=== PATIENT | male | born 1930 | race Caucasian/White ===

== ENCOUNTER 2016-08-12 03:20 | Inpatient (IN) | payer MEDICARE ==
[2016-08-12] MEDS ORDERED: SODIUM CHLORIDE 0.9% 1,000 ML IV STA (03:26)
[2016-08-12] MEDS ORDERED: IPRATROPIUM-ALBUTEROL 3 ML NEB INHALATION STA (03:26)
[2016-08-12] MEDS ORDERED: methylPREDNISolone SOD SUCCI 125 MG/2 ML VIAL IV STA (03:26)
--- NOTE | 2016-08-12 03:30 | ED ---
SOB HPI - General Stated Complaint: SOB Time Seen by Provider: 08/12/16 03:20 Source: patient, EMS, RN notes reviewed Mode of arrival: EMS - History of Present Illness Initial Comments: This is a 86-year-old male history of reflux and hypertension who was diagnosed with bronchitis about 2 weeks ago who persists in having a cough and wheezing. EMS was called today because he was more short of breath apparently. Upon initial presentation the patient was doing her breath with congestive lung sounds. He was given a unit dose DuoNeb and route to. He did seem to have some improvement his pulse ox remained at 94 were started. He denies any fevers chills chest pain no sweats. He is a former smoker. No known history of COPD or emphysema however. MD Complaint: shortness of breath, cough - Related Data Home Medications Medication Instructions Recorded Confirmed Citalopram Hydrobromide [CeleXA] 40 mg PO DAILY 05/01/14 08/12/16 HYDROcodone/APAP 10-325MG [[place] 1 each PO Q4HR PRN 05/01/14 08/12/16 10] Metoprolol Tartrate [Lopressor] 12.5 mg PO BID 05/01/14 08/12/16 Omeprazole [PriLOSEC] 20 mg PO DAILY 05/01/14 08/12/16 Tamsulosin HCl [Flomax] 0.4 mg PO DAILY 05/01/14 08/12/16 Aspirin 81 mg PO DAILY 08/12/16 08/12/16 rOPINIRole HCL 0.5 mg PO DAILY 08/12/16 08/12/16 Allergies Allergy/AdvReac Type Severity Reaction Status Date / Time No Known Allergies Allergy Verified 08/12/16 03:38 Review of Systems ROS Statement: Those systems with pertinent positive or pertinent negative responses have been documented in the HPI. ROS Other: All systems not noted in ROS Statement are negative. Past Medical History Past Medical History: GERD/Reflux, Hypertension, Prostate Disorder Additional Past Medical History / Comment(s): pancreatitis History of Any Multi-Drug Resistant Organisms: None Reported Past Surgical History: Cholecystectomy, Joint Replacement Past Psychological History: Anxiety Smoking Status: Former smoker Past Alcohol Use History: None Reported Past Drug Use History: None Reported General Exam - General Exam Comments Initial Comments: This is a well-developed well-nourished awake alert oriented times female he is hard of hearing. General appearance: alert, in no apparent distress Head exam: Present: atraumatic, normocephalic, normal inspection Eye exam: Present: normal appearance, PERRL, EOMI. Absent: scleral icterus, conjunctival injection, periorbital swelling ENT exam: Present: normal exam, mucous membranes moist Neck exam: Present: normal inspection. Absent: tenderness, meningismus, lymphadenopathy Respiratory exam: Present: wheezes, decreased breath sounds (Right lower lobe crepitus.). Absent: respiratory distress, rales, rhonchi, stridor Cardiovascular Exam: Present: regular rate, normal rhythm, normal heart sounds. Absent: systolic murmur, diastolic murmur, rubs, gallop, clicks GI/Abdominal exam: Present: soft, normal bowel sounds. Absent: distended, tenderness, guarding, rebound, rigid Extremities exam: Present: normal inspection, full ROM, normal capillary refill. Absent: tenderness, pedal edema, joint swelling, calf tenderness Back exam: Present: normal inspection Neurological exam: Present: alert, oriented X3, CN II-XII intact Psychiatric exam: Present: normal affect, normal mood Skin exam: Present: warm, dry, intact, normal color. Absent: rash Course Vital Signs 08/12/16 08/12/16 08/12/16 03:20 04:10 04:17 Temperature 99.3 F Pulse Rate 62 56 L 62 Respiratory 20 Rate Blood Pressure 100/55 O2 Sat by Pulse 96 Oximetry - Reevaluation(s) Reevaluation #1: 08/12/16 05:27 Evaluation after initial treatment revealed diminished breath sounds with crepitus and crackles in the right base. He does feel somewhat better. Medical Decision Making - Medical Decision Making I did discuss findings with the patient and family patient will be admitted. - Lab Data Result diagrams: 08/12/16 04:00 08/12/16 04:00 Lab Results 08/12/16 08/12/16 08/12/16 Range/Units 04:00 04:00 04:00 WBC 12.2 H (3.8-10.6) k/uL RBC 3.74 L (4.30-5.90) m/uL Hgb 10.8 L (13.0-17.5) gm/dL Hct 32.9 L (39.0-53.0) % MCV 88.0 (80.0-100.0) fL MCH 28.8 (25.0-35.0) pg MCHC 32.8 (31.0-37.0) g/dL RDW 13.8 (11.5-15.5) % Plt Count 168 (150-450) k/uL Neutrophils % 80 % Lymphocytes % 14 % Monocytes % 5 % Eosinophils % 0 % Basophils % 0 % Neutrophils # 9.7 H (1.3-7.7) k/uL Lymphocytes # 1.7 (1.0-4.8) k/uL Monocytes # 0.6 (0-1.0) k/uL Eosinophils # 0.0 (0-0.7) k/uL Basophils # 0.0 (0-0.2) k/uL PT (9.0-12.0) sec INR (<1.1) APTT (22.0-30.0) sec Sodium 137 (137-145) mmol/L Potassium 4.2 (3.5-5.1) mmol/L Chloride 105 (98-107) mmol/L Carbon Dioxide 21 L (22-30) mmol/L Anion Gap 11 mmol/L BUN 25 H (9-20) mg/dL Creatinine 1.70 H (0.66-1.25) mg/dL Est GFR (MDRD) Af Amer 47 (>60 ml/min/1.73 sqM) Est GFR (MDRD) Non-Af 38 (>60 ml/min/1.73 sqM) Glucose 105 H (74-99) mg/dL Calcium 8.4 (8.4-10.2) mg/dL Magnesium 1.7 (1.6-2.3) mg/dL Total Bilirubin 1.3 (0.2-1.3) mg/dL AST 27 (17-59) U/L ALT 29 (21-72) U/L Alkaline Phosphatase 85 (38-126) U/L Total Creatine Kinase 84 (55-170) U/L CK-MB (CK-2) 0.9 (0.0-2.4) ng/mL CK-MB (CK-2) Rel Index 1.1 Troponin I 0.021 (0.000-0.034) ng/mL NT-Pro-B Natriuret Pep pg/mL Total Protein 6.1 L (6.3-8.2) g/dL Albumin 3.3 L (3.5-5.0) g/dL 08/12/16 08/12/16 Range/Units 04:00 04:00 WBC (3.8-10.6) k/uL RBC (4.30-5.90) m/uL Hgb (13.0-17.5) gm/dL Hct (39.0-53.0) % MCV (80.0-100.0) fL MCH (25.0-35.0) pg MCHC (31.0-37.0) g/dL RDW (11.5-15.5) % Plt Count (150-450) k/uL Neutrophils % % Lymphocytes % % Monocytes % % Eosinophils % % Basophils % % Neutrophils # (1.3-7.7) k/uL Lymphocytes # (1.0-4.8) k/uL Monocytes # (0-1.0) k/uL Eosinophils # (0-0.7) k/uL Basophils # (0-0.2) k/uL PT 11.4 (9.0-12.0) sec INR 1.1 (<1.1) APTT 25.4 (22.0-30.0) sec Sodium (137-145) mmol/L Potassium (3.5-5.1) mmol/L Chloride (98-107) mmol/L Carbon Dioxide (22-30) mmol/L Anion Gap mmol/L BUN (9-20) mg/dL Creatinine (0.66-1.25) mg/dL Est GFR (MDRD) Af Amer (>60 ml/min/1.73 sqM) Est GFR (MDRD) Non-Af (>60 ml/min/1.73 sqM) Glucose (74-99) mg/dL Calcium (8.4-10.2) mg/dL Magnesium (1.6-2.3) mg/dL Total Bilirubin (0.2-1.3) mg/dL AST (17-59) U/L ALT (21-72) U/L Alkaline Phosphatase (38-126) U/L Total Creatine Kinase (55-170) U/L CK-MB (CK-2) (0.0-2.4) ng/mL CK-MB (CK-2) Rel Index Troponin I (0.000-0.034) ng/mL NT-Pro-B Natriuret Pep 4180 pg/mL Total Protein (6.3-8.2) g/dL Albumin (3.5-5.0) g/dL - Radiology Data Radiology results: report reviewed (Review the x-ray reveals chronic lung changes mild atelectasis and scarring in both lung bases no definite focal pneumonia), image reviewed Disposition Clinical Impression: Pneumonitis, Acute bronchospasm, Febrile illness, acute, CHF (congestive heart failure) Disposition: ADMITTED IP TO THIS [facility] Condition: Stable Referrals: Alex Beck MD [Primary Care Provider] - 1-2 days Decision Time: 05:20
[2016-08-12 04:17] LABS: Basophils % (A) 0 %; CH 30.2; CHCM 34.5; Eosinophils % (A) 0 %; HCT 32.9 % (39.0-53.0); HDW 2.88; HGB 10.8 gm/dL (13.0-17.5); Luc # (Auto) 0.21; Luc % (Auto) 2; Lymphocytes # (A) 1.7 k/uL (1.0-4.8); Lymphocytes % (A) 14 %; MCH 28.8 pg (25.0-35.0); MCHC 32.8 g/dL (31.0-37.0); Mean Platelet Volume 7.9; Monocytes # (A) 0.6 k/uL (0-1.0); Monocytes % (A) 5 %; Neutrophils # (A) 9.7 k/uL (1.3-7.7); Neutrophils % (A) 80 %; RBC 3.74 m/uL (4.30-5.90); RDW 13.8 % (11.5-15.5); WBC 12.2 k/uL (3.8-10.6)
[2016-08-12 04:25] LABS: Calcium 8.4 mg/dL (8.4-10.2); Magnesium 1.7 mg/dL (1.6-2.3); Potassium 4.2 mmol/L (3.5-5.1); Total Bilirubin 1.3 mg/dL (0.2-1.3); Total Protein 6.1 g/dL (6.3-8.2)
[2016-08-12 04:26] LABS: INR 1.1 (<1.1); Partial Thromboplastin Time 25.4 sec (22.0-30.0); Prothrombin Time 11.4 sec (9.0-12.0)
--- NOTE | 2016-08-12 04:39 | XR ---
EXAMINATION TYPE: XR chest 2V DATE OF EXAM: 08/12/2016 4:08 AM COMPARISON: 01/08/2013 HISTORY: Difficulty in breathing cough. TECHNIQUE: Frontal and lateral views of the chest are obtained. FINDINGS: Chronic lung changes are suggested bilaterally. Mild atelectatic changes are noted in both lung bases . No definite focal pneumonia is noted. There is mild cardiomegaly and atherosclerotic calcification that popped. Moderate degenerative changes in the thoracic spine. IMPRESSION: 1. Chronic lung changes are suggested. 2. Mild atelectasis and scarring in both lung bases. 3. No definite focal pneumonia. 4. No significant interval change.
[2016-08-12 04:48] LABS: Creatine Kinase MB 0.9 ng/mL (0.0-2.4); Troponin I 0.021 ng/mL (0.000-0.034)
[2016-08-12] MEDS ORDERED: PIPERACILLIN-TAZOBACTAM 3.375 GM in DEXTROSE/WATER 1 50ML.BAG IVPB STA (05:29)
[2016-08-12] MEDS ORDERED: PNEUMONIA PROTOCOL UTILIZED 1 EACH MISC PO PRN (05:53)
[2016-08-12] MEDS ORDERED: LEVOFLOXACIN 750MG-D5W PMX 750 MG in DEXTROSE/WATER 1 150ML.BAG IVPB STA (05:53)
[2016-08-12] MEDS: IPRATROPIUM-ALBUTEROL 3 ML NEB INHALATION SCH ×5 (07:54→23:59)
[2016-08-12] MEDS: methylPREDNISolone SOD SUCCI 125 MG/2 ML VIAL IV SCH ×4 (08:18→23:22)
[2016-08-12] MEDS: FUROSEMIDE 10 MG/ML 4 ML VIAL IV SCH ×2 (08:19→21:30)
[2016-08-12] MEDS: TAMSULOSIN 0.4 MG CAP.ER.24H PO SCH (08:19)
[2016-08-12] MEDS: METOPROLOL TARTRATE 12.5 MG TAB PO SCH ×2 (08:19→21:30)
[2016-08-12] MEDS: PANTOPRAZOLE 40 MG TABLET PO SCH (08:19)
[2016-08-12] MEDS: ASPIRIN 81 MG CHEW PO SCH (08:19)
[2016-08-12] MEDS: SODIUM CHLORIDE 0.9% 1,000 ML IV SCH (08:26)
[2016-08-12] MEDS ORDERED: CITALOPRAM HYDROBROMIDE 10 MG TAB PO SCH (09:00)
[2016-08-12] MEDS: HYDROcodone/APAP 10-325MG 1 EACH TAB PO PRN ×3 (10:57→22:38)
[2016-08-12] MEDS ORDERED: guaiFENesin SYRUP 100MG/5ML 200 MG/10 ML CUP PO PRN (12:54)
--- NOTE | 2016-08-12 14:16 | NM ---
EXAMINATION TYPE: NM pul vent and perfuse DATE OF EXAM: 08/12/2016 2:04 PM COMPARISON: NONE HISTORY: Short of breath TECHNIQUE: Utilizing inhalation of 70 mCi Tc 99m DTPA aerosol and intravenous injection of 5.5 mCi o f Tc 99m MAA, ventilation and perfusion images are acquired post injection in multiple projections. Exam is compared 08/12/2016 chest x-ray FINDINGS: There is a fixed defect over the right chest apex. This does not measure radiographic abnormality. No reversible perfusion defects are evident. No triple matched defects are evident. IMPRESSION: Low probability for pulmonary embolism.
--- NOTE | 2016-08-12 14:49 | P.CNPUL ---
History of Present Illness Consult date: 08/12/16 Reason for consult: cough Chief complaint: Generalized weakness and cough History of present illness: This is an 86-year-old gentleman who is extremely hard of hearing who presented emergency department complaining of generalized weakness and falls at home. The patient states that he was diagnosed with bronchitis about 2 weeks ago but has been coughing and wheezing for over a month. He states that he coughs of a lot of phlegm. He does have intermittent shortness of breath. He denies fevers and chills. The patient states he has been weak and falling at home and hit his head once. He states he has had no appetite recently. He is a former smoker he quit in 1956, he used to smoke 1 pack per day for 7 years. Per the nurse who has spoken with the patient's daughter P patient has been on fentanyl patch and [place] and has been sleeping a lot at home. He also has a history of depression. The patient is unsure of what he was treated with for his bronchitis. He does not use any inhalers or nebulizer at home. 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 History of Any Multi-Drug Resistant Organisms: MRSA Date of last positivie culture/infection: 01/2011 MDRO Source:: urine per pt and his daughter. Past Surgical History: Cholecystectomy, Joint Replacement, Orthopedic Surgery Additional Past Surgical History / Comment(s): 2010 cholecystectomy, 2013 biliary stenting (removed), R knee arthroscopy, R knee total arthroplasty, colonoscopy with benign polypectomy. Past Anesthesia/Blood Transfusion Reactions: No Reported Reaction Past Psychological History: Anxiety, Depression Additional Psychological History / Comment(s): Pt states he has depression and has thought of suicide in the past but currently has no thought or plan of suicide and does not wish to be . Pt resides with his spouse and their daughter, Diane is living with them at this time. Pt uses his spouses cane to ambulate. He drives but julieta is planning to encourage pt to quit driving. Pt's julieta, Diane manages his medications and is looking into getting him meals on wheels. Smoking Status: Former smoker Past Alcohol Use History: None Reported Additional Past Alcohol Use History / Comment(s): Pt smoked while he was in the [employer]- [id number]. Pt used to drink alcohol on occasion but has not drank any in 2 yrs. Past Drug Use History: None Reported - Past Family History Mother Family Medical History: No Reported History Additional Family Medical History / Comment(s): Mother at the age of 96yrs. Father Family Medical History: Liver Disease Additional Family Medical History / Comment(s): Father was an alcoholic and of liver cirrhosis at the age of 67yrs. Medications and Allergies Home Medications Medication Instructions Recorded Confirmed Type HYDROcodone/APAP 10-325MG [[place] 1 tab PO TID PRN 05/01/14 08/12/16 History 10] Omeprazole [PriLOSEC] 20 mg PO DAILY 05/01/14 08/12/16 History Tamsulosin HCl [Flomax] 0.4 mg PO HS 05/01/14 08/12/16 History Aspirin 81 mg PO DAILY 08/12/16 08/12/16 History Citalopram Hydrobromide 40 mg PO HS 08/12/16 08/12/16 History Metoprolol Tartrate [Lopressor] 12.5 mg PO BID 08/12/16 08/12/16 History fentaNYL 25MCG/HR PATCH [Duragesic 25 mcg TRANSDERM Q72H PRN 08/12/16 08/12/16 History 25MCG/HR] guaiFENesin SYRUP 100MG/5ML 200 mg PO Q6H PRN 08/12/16 08/12/16 History [Robitussin] rOPINIRole HCL 0.5 mg PO HS 08/12/16 08/12/16 History Allergies Allergy/AdvReac Type Severity Reaction Status Date / Time No Known Allergies Allergy Verified 08/12/16 08:41 Physical Exam Osteopathic Statement: *. No significant issues noted on an osteopathic structural exam other than those noted in the History and Physical/Consult. Vitals: Vital Signs Temp Pulse Pulse Resp BP BP Pulse Ox 08/12/16 11:36 68 08/12/16 11:22 68 08/12/16 08:03 72 08/12/16 07:54 68 08/12/16 07:35 97.4 F L 57 L 18 137/65 97 08/12/16 06:24 98.5 F 57 L 20 139/62 99 Gen.: Patient is alert and oriented 3, no acute distress, hard of hearing Cardiovascular: Regular rate and rhythm, S1/S2 Lungs: Coarse breath sounds bilaterally Abdomen: Soft nontender nondistended positive bowel sounds Extremities: No edema Results - Laboratory Findings CBC and BMP: 08/12/16 04:00 08/12/16 04:00 PT/INR, D-dimer PT 11.4 sec (9.0-12.0) 08/12/16 04:00 INR 1.1 (<1.1) 08/12/16 04:00 - Diagnostic Findings Chest x-ray: report reviewed, image reviewed CT scan - chest: report reviewed, image reviewed Assessment and Plan Plan: Acute hypoxic respiratory failure Acute bronchospasm Tracheobronchitis 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 tach Chronic kidney disease Anemia O2 to maintain saturation greater than or equal to 88% IV Solu-Medrol taper Pulmicort and bronchodilators Antibiotics: Levaquin Sputum culture Cardiology consult for V. tach Incentive spirometry and pulmonary hygiene PT and OT Repeat CXR in AM Consult dietitian Thank you for this consultation. We will continue to follow along.
[2016-08-12] MEDS: ISOSORBIDE MONONITRATE ER 30 MG TAB.ER.24H PO SCH (15:05)
--- NOTE | 2016-08-12 15:38 | P.HPIM ---
History of Present Illness H&P Date: 08/12/16 Chief Complaint: Dyspnea and shortness of breath, severe cough wheezes, CHF exacerbation, 86-year-old male one of my office patient with long-standing history of A. 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 Also patient has been seen for chronic back pain and pain management has been on hydrocodone and fentanyl smaller dose has been doing well with it. Patient had developed worsening bronchitis with cough productive Dr. phlegm 2 weeks ago was treated with oral antibiotic as an outpatient he felt slightly bit better with his symptoms become much worse over the last 48 hours ended up having inspiratory expiratory wheezes with cough productive of dark phlegm not been able to lay down flat in bed and has been restless weak tired not been able to eat or drink. Patient ended up coming to the emergency department at [facility] where was seen and evaluated his harsh cough and clinical finding more suggestive of severe pneumonitis with COPD exacerbation, his BNP was quite bit elevated and diagnosed with CHF as well. Shortly after his admission he developed to have a run of V. tach close to 30 beats he was not symptomatic except had mild fatigue and tiredness from it. Review of Systems Constitutional: Reports chronic headaches, Reports fatigue, Reports lethargy, Reports malaise, Reports poor appetite, Reports weakness, Reports weight loss, Denies as per HPI, Denies anorexia, Denies chills, Denies chronic pain, Denies daytime sleepiness, Denies fever, Denies night sweats, Denies sweats, Denies weight gain Eyes: bilateral as per HPI Ears: bilateral: decreased hearing Ears, nose, mouth and throat: Reports ant. neck pain, Reports nasal congestion, Reports nasal discharge, Reports sinus pain, Reports sinus pressure, Denies as per HPI, Denies bleeding gums, Denies dental pain, Denies dysphagia, Denies epistaxis, Denies headache, Denies hoarseness, Denies mouth pain, Denies neck fullness/pressure, Denies neck lump, Denies nose pain, Denies odynophagia, Denies post-nasal drip, Denies swelling in mouth, Denies swelling in throat, Denies sore throat, Denies vertigo, Denies voice changes Cardiovascular: Reports chest pain, Reports decreased exercise tolerance, Reports dyspnea on exertion, Reports edema, Reports high blood pressure, Reports irregular heart beat, Reports leg edema, Reports lightheadedness, Reports orthopnea, Reports palpitations, Reports paroxysmal nocturnal dyspnea, Reports rapid heart beat, Reports shortness of breath, Denies as per HPI, Denies claudication, Denies phlebitis, Denies syncope Respiratory: Reports congestion, Reports cough, Reports cough with sputum, Reports dyspnea, Reports pleurisy, Reports respiratory infections, Reports snoring, Reports wheezing, Denies as per HPI, Denies excessive sputum, Denies hemoptysis, Denies home oxygen, Denies pain, Denies pain on inspiration, Denies sleep apnea Gastrointestinal: Reports abdominal pain, Reports bloating, Reports dyspepsia, Reports early satiety, Reports indigestion, Reports loss of appetite, Reports melena, Reports nausea, Denies as per HPI, Denies belching, Denies BRBPR, Denies change in bowel habits, Denies coffee ground emesis, Denies constipation , Denies diarrhea, Denies excessive gas, Denies heartburn, Denies hematemesis, Denies hematochezia, Denies jaundice, Denies lactose intolerance, Denies vomiting Genitourinary: Reports nocturia, Reports polyuria, Denies as per HPI, Denies decreased libido, Denies difficulties fathering child, Denies discharge, Denies dysuria, Denies erectile dysfunction, Denies flank pain, Denies genital pain, Denies genital sores, Denies hematuria, Denies impotence, Denies incontinence, Denies kidney stones, Denies testicular lump, Denies testicular pain, Denies urinary frequency, Denies urinary hesitancy, Denies urinary retention Musculoskeletal: Reports arm numbness/tingling, Reports frequent falls, Reports leg numbness/tingling, Reports limitation of motion, Reports myalgias, Reports neck pain, Denies as per HPI, Denies atrophy, Denies fractures, Denies gait dysfunction, Denies hot joints, Denies loss of height, Denies low back pain, Denies morning stiffness, Denies muscle cramps, Denies muscle weakness, Denies neck stiffness, Denies prior amputations, Denies redness of joints, Denies shooting arm pain, Denies shooting leg pain Musculoskeletal: bilateral: ankle pain Integumentary: Reports dryness, Reports pruritus, Reports rash, Denies as per HPI, Denies acne, Denies boils, Denies brittle nails, Denies change in hair/ nails, Denies color changes, Denies darkening of skin, Denies depigmentation, Denies foot/leg ulcers, Denies growths, Denies hirsutism, Denies lesions, Denies onychomycosis, Denies sores, Denies striae, Denies unusual bruising, Denies wounds Neurological: Reports ataxia, Reports gait dysfunction, Reports numbness, Reports paresthesias, Reports tingling, Reports tremors, Reports weakness, Denies as per HPI, Denies aphasia, Denies balance difficulties, Denies burning pain, Denies change in mentation, Denies change in smell/taste, Denies change in speech, Denies confusion, Denies convulsions, Denies double vision, Denies head injury, Denies headaches, Denies hearing difficulties, Denies lack of coordination, Denies loss of vision, Denies memory loss, Denies migraines, Denies motor disturbance, Denies paralysis, Denies seizures, Denies sensory deficit, Denies spasticity, Denies syncope, Denies tic, Denies transient paralysis, Denies vertigo, Denies visual changes Psychiatric: Reports anhedonia, Reports anxiety, Reports depression, Reports insomnia, Reports irritability, Reports sadness/tearfulness, Denies as per HPI, Denies anxiety attacks, Denies change in appetite, Denies change in libido, Denies change in sleep habits, Denies confusion, Denies difficulty concentrating , Denies disorientation, Denies hallucinations, Denies hopelessness, Denies hypersomnia, Denies memory loss, Denies mood swings, Denies paranoia, Denies sleep disturbances, Denies suicidal ideation Endocrine: Reports deepening of the voice, Reports fatigue, Reports flushing, Reports heat intolerance, Denies as per HPI, Denies cold intolerance, Denies excessive sweating, Denies excessive thirst, Denies high blood sugars, Denies increase in ring/shoe/hat size, Denies low blood sugars, Denies nocturia, Denies palpitations, Denies polydipsia, Denies polyphagia, Denies polyuria, Denies proptosis, Denies recent glucocorticoid use, Denies thyroid mass, Denies weight change Hematologic/Lymphatic: Denies as per HPI, Denies easy bleeding, Denies easy bruising, Denies lymphadenopathy, Denies lymphedema, Denies thrombophilia Allergic/Immunologic: Denies as per HPI, Denies allergic rhinitis, Denies anaphylaxis, Denies angioedema, Denies gluten intolerance, Denies persistent infections, Denies seasonal allergies, Denies urticaria, Denies wheezing Past Medical History Past Medical History: Atrial Fibrillation, Chest Pain / Angina, GERD/Reflux, Hypertension, Prostate Disorder Additional Past Medical History / Comment(s): Recent bronchitis tx with ABX, 2010 pancreatitis-pseudocyst, paroxysmal Afib in 2010, BPH, UTI with mrsa 2010, chronic back pain-trying to wean fentynal patch due to pt wanting to sleep excessively. History of Any Multi-Drug Resistant Organisms: MRSA Date of last positivie culture/infection: 01/2011 MDRO Source:: urine per pt and his daughter. Past Surgical History: Cholecystectomy, Joint Replacement, Orthopedic Surgery Additional Past Surgical History / Comment(s): 2010 cholecystectomy, 2012 biliary stenting (removed), R knee arthroscopy, R knee total arthroplasty, colonoscopy with benign polypectomy. Past Anesthesia/Blood Transfusion Reactions: No Reported Reaction Past Psychological History: Anxiety, Depression Additional Psychological History / Comment(s): Pt states he has depression and has thought of suicide in the past but currently has no thought or plan of suicide and does not wish to be . Pt resides with his spouse and their daughter, Diane is living with them at this time. Pt uses his spouses cane to ambulate. He drives but julieta is planning to encourage pt to quit driving. Pt's julieta, Diane manages his medications and is looking into getting him meals on wheels. Smoking Status: Former smoker Past Alcohol Use History: None Reported Additional Past Alcohol Use History / Comment(s): Pt smoked while he was in the [employer]- [id number]. Pt used to drink alcohol on occasion but has not drank any in 2 yrs. Past Drug Use History: None Reported - Past Family History Mother Family Medical History: No Reported History Additional Family Medical History / Comment(s): Mother at the age of 96yrs. Father Family Medical History: Liver Disease Additional Family Medical History / Comment(s): Father was an alcoholic and of liver cirrhosis at the age of 67yrs. Medications and Allergies Home Medications Medication Instructions Recorded Confirmed Type HYDROcodone/APAP 10-325MG [Ol[place] 1 tab PO TID PRN 05/01/14 08/12/16 History 10] Omeprazole [PriLOSEC] 20 mg PO DAILY 05/01/14 08/12/16 History Tamsulosin HCl [Flomax] 0.4 mg PO HS 05/01/14 08/12/16 History Aspirin 81 mg PO DAILY 08/12/16 08/12/16 History Citalopram Hydrobromide 40 mg PO HS 08/12/16 08/12/16 History Metoprolol Tartrate [Lopressor] 12.5 mg PO BID 08/12/16 08/12/16 History fentaNYL 25MCG/HR PATCH [Duragesic 25 mcg TRANSDERM Q72H PRN 08/12/16 08/12/16 History 25MCG/HR] guaiFENesin SYRUP 100MG/5ML 200 mg PO Q6H PRN 08/12/16 08/12/16 History [Robitussin] rOPINIRole HCL 0.5 mg PO HS 08/12/16 08/12/16 History Allergies Allergy/AdvReac Type Severity Reaction Status Date / Time No Known Allergies Allergy Verified 08/12/16 08:41 Physical Exam Vitals: Vital Signs Temp Pulse Pulse Resp BP BP Pulse Ox 08/12/16 11:36 68 08/12/16 11:22 68 08/12/16 08:03 72 08/12/16 07:54 68 08/12/16 07:35 97.4 F L 57 L 18 137/65 97 08/12/16 06:24 98.5 F 57 L 20 139/62 99 - Constitutional General appearance: no average body habitus, cooperative, disheveled, mild distress, no morbidly obese, no no acute distress, no obese, no severe distress , no thin - EENT Eyes: no abnormal pupil, no anicteric sclerae, no disc margins sharp, no edentulous, no EOMI, no PERRLA, no fundus normal, no photophobia, no dentition normal, no poor dentition, no ptosis, no scleral icterus, normal appearance ENT: no hard of hearing, no hearing grossly normal, no NA/AT, normal oropharynx , no other, no pharyngeal erythema, no thrush, no tonsillar exudates, no tonsillar swelling Ears: bilateral: normal - Neck Neck: no lymphadenopathy, normal ROM, no other, no rigidity, no stridor, no thyromegaly Carotids: bilateral: upstroke normal, upstroke delayed Thyroid: bilateral: normal size - Respiratory Respiratory: bilateral: diminished, dullness, rales, rhonchi, wheezing, prolonged expiration - Cardiovascular Rhythm: regular Heart sounds: normal: S1, S2 Abnormal Heart Sounds: systolic murmur, S3 Gallop - Gastrointestinal General gastrointestinal: no absent bowel sounds, decreased bowel sounds, distended, hepatomegaly, no hyperactive bowel sounds, no normal bowel sounds, no organomegaly, no rigid, scaphoid, soft, splenomegaly, no tenderness, no umbilical hernia, no ventral hernia - Integumentary Integumentary: no calor, cellulitis, no cyanotic, decreased turgor, flushed, no jaundiced, normal, no normal turgor, pale, rash, no ulcer - Neurologic Neurologic: CNII-XII intact - Musculoskeletal Musculoskeletal: gait normal, generalized weakness, strength equal bilaterally, no right sided weakness, no left sided weakness - Psychiatric Psychiatric: A&O x's 3, appropriate affect Results CBC & Chem 7: 08/12/16 04:00 08/12/16 04:00 Thrombosis Risk Factor Assmnt - DVT/VTE Prophylaxis DVT/VTE Prophylaxis: Pharmacologic Prophylaxis ordered, Mechanical Prophylaxis ordered - Choose All That Apply Any of the Below Risk Factors Present?: Yes Each Factor Represents 1 point: Heart failure (<1month), Serious lung disease incl. pneumonia (< 1month) Other Risk Factors: Yes Each Risk Factor Represents 3 Points: Age 75 years or older Other congenital or acquired thrombophilia - If yes, enter type in comment: No Thrombosis Risk Factor Assessment Total Risk Factor Score: 5 Thrombosis Risk Factor Assessment Level: High Risk Assessment and Plan Plan: 1 acute respiratory failure: Combination of COPD/bronchospasm, severe purulent tracheal bronchitis with early pneumonitis, arrhythmia mostly A. fib with V. tach and systolic dysfunction congestive heart failure subacute on acute causing slight degree of pulmonary edema. 2 COPD exacerbation: Patient will be on Solu-Medrol 60 mg every 6 hours around- the-clock continue DuoNeb and Pulmicort will consult pulmonary repeat another chest x-ray in 48 hours. 3 severe purulent tracheal bronchitis and early pneumonitis: Patient was started on Zosyn and Levaquin continue current medication and treatment continue coverage for gram-negative at this point. 4 congestive heart failure exacerbation: Subacute on acute systolic dysfunction with elevated BNP and significant fluid retention patient will remain on diuretics and will add nitro this point echocardiogram was order and patient be seen cardiology. 5 V. tach: Patient be seen cardiology might require to be on IV antiarrhythmic versus oral amiodarone continue case monitor testing including troponin BNP and CK will be done. 6 mild pulmonary fibrosis and multiple calcified pulmonary nodular: Patient be seen pulmonary down the road might require to have bronchoscopy. 7 chronic kidney disease: Stage III continue mild hydration repeat CMP daily. 8 anemia: Continue to watch for any significant bleed, patient will have CBC daily. 9 chronic pain syndrome: Has been on fentanyl and hydrocodone continue both medication. 10 severe BPH: Has been on tamsulosin 0.4 mg daily. 11 A. fib with RVR: Pulse rate has been under control patient has been on metoprolol 12.5 g twice a day surprisingly is not a candidate for anticoagulation specially with his recurrent GI bleed in the past and pseudo- cyst along with recurrent peptic ulcer disease and GI bleed continue medical management with no anticoagulation specially with the type of anemia he has. 12 restless leg syndrome: Has been on Requip 0.5 mg daily at bedtime. 13 chronic depression: Patient has been on citalopram 40 mg daily. 14 severe GERD/GI prophylaxis: Patient was started on pantoprazole 40 mg daily he was on omeprazole as an outpatient. 15 DVT prophylaxis: Patient will be on Lovenox 40 mg subcutaneous daily. CODE STATUS: Full code. Expectation from this admission: Patient be in the hospital for more than 2 nights.
[2016-08-12] MEDS ORDERED: PIPERACILLIN-TAZOBACTAM 3.375 GM in DEXTROSE/WATER 1 50ML.BAG IVPB SCH (16:00)
[2016-08-12 18:54] LABS: Appearance,Urine Clear (Clear); Bilirubin,Urine Negative (Negative); Glucose,Urine (UA) Negative (Negative); Ketones,Urine Negative (Negative); Leukocyte Esterase,Urine Negative (Negative); Nitrite,Urine Negative (Negative); Protein,Urine Negative (Negative); Specific Gravity,Urine 1.008 (1.001-1.035); UA Billing (MACRO vs. MICRO) CHEM; Urobilinogen,Urine <2.0 mg/dL (<2.0)
[2016-08-12] MEDS: BUDESONIDE 0.5 MG/2 ML NEBU INHALATION SCH (20:36)
[2016-08-13] MEDS: IPRATROPIUM-ALBUTEROL 3 ML NEB INHALATION SCH ×6 (03:37→23:56)
[2016-08-13] MEDS: methylPREDNISolone SOD SUCCI 125 MG/2 ML VIAL IV SCH (05:42)
[2016-08-13] MEDS: BUDESONIDE 0.5 MG/2 ML NEBU INHALATION SCH ×2 (06:53→19:16)
[2016-08-13 07:56] LABS: Basophils % (A) 0 %; CH 29.7; CHCM 33.2; Eosinophils % (A) 0 %; HCT 33.5 % (39.0-53.0); HDW 2.81; Luc # (Auto) 0.09; Luc % (Auto) 1; Lymphocytes # (A) 0.9 k/uL (1.0-4.8); Lymphocytes % (A) 8 %; MCH 29.5 pg (25.0-35.0); MCHC 32.8 g/dL (31.0-37.0); MCV 89.9 fL (80.0-100.0); Mean Platelet Volume 7.4; Monocytes # (A) 0.3 k/uL (0-1.0); Monocytes % (A) 3 %; Neutrophils # (A) 9.9 k/uL (1.3-7.7); Neutrophils % (A) 88 %; RBC 3.73 m/uL (4.30-5.90); WBC 11.2 k/uL (3.8-10.6); WBC (Perox) 12.42
[2016-08-13 08:02] LABS: Calcium 8.7 mg/dL (8.4-10.2); Potassium 3.7 mmol/L (3.5-5.1); Total Protein 6.6 g/dL (6.3-8.2)
--- NOTE | 2016-08-13 08:05 | XR ---
EXAMINATION TYPE: XR chest 1V portable DATE OF EXAM: 08/13/2016 8:00 AM HISTORY: Difficulty breathing. REFERENCE: Previous study dated 08/12/2016. FINDINGS: Heart size is upper limits of normal. There is some minimal left basilar airspace disease e ither representing atelectasis or pneumonia. No definite pleural fluid is seen. IMPRESSION: 1. BORDERLINE CARDIOMEGALY. 2. MINIMAL BASILAR AIRSPACE DISEASE.
[2016-08-13] MEDS: METOPROLOL TARTRATE 12.5 MG TAB PO SCH (08:34)
[2016-08-13] MEDS: TAMSULOSIN 0.4 MG CAP.ER.24H PO SCH (08:43)
[2016-08-13] MEDS: ASPIRIN 81 MG CHEW PO SCH (08:43)
[2016-08-13] MEDS: ISOSORBIDE MONONITRATE ER 30 MG TAB.ER.24H PO SCH (08:43)
[2016-08-13] MEDS: FUROSEMIDE 10 MG/ML 4 ML VIAL IV SCH (08:43)
[2016-08-13] MEDS: PANTOPRAZOLE 40 MG TABLET PO SCH (08:43)
[2016-08-13] MEDS ORDERED: ENOXAPARIN 40 MG/0.4 ML SYRINGE SQ SCH (09:00)
[2016-08-13] MEDS ORDERED: LEVOFLOXACIN 750 MG TAB PO SCH (09:00)
--- NOTE | 2016-08-13 09:53 | ECHOF ---
Referral Reason:lvfunction MEASUREMENTS -------- HEIGHT: 177.8 cm WEIGHT: 72.6 kg BP: 137/65 RVIDd: 3.1 cm (< 3.3) IVSd: 1.1 cm (0.6 - 1.1) LVIDd: 4.0 cm (3.9 - 5.3) LVPWd: 1.1 cm (0.6 - 1.1) IVSs: 1.7 cm LVIDs: 2.7 cm LVPWs: 1.8 cm LA Diam: 3.7 cm (2.7 - 3.8) LAESV Index (A-L): 25.80 ml/m Ao Diam: 3.6 cm (2.0 - 3.7) AV Cusp: 1.7 cm (1.5 - 2.6) MV EXCURSION: 13.883 mm (> 18.000) MV EF SLOPE: 55 mm/s (70 - 150) EPSS: 0.3 cm MV E Kar: 0.68 m/s MV DecT: 296 ms MV A Kar: 0.71 m/s MV E/A Ratio: 0.96 AV maxP.61 mmHg AV meanP.52 mmHg AR PHT: 1519 ms FINDINGS -------- Sinus rhythm. This was a technically good study. The left ventricular size is normal. There is borderline concentric left ventricular hypertrophy. Overall left ventricular systolic function is normal with, an EF between 55 - 60 %. The right ventricle is normal in size. Normal LA size by volume 22+/-6 ml/m2. The right atrium is normal in size. The aortic valve is trileaflet and appears structurally normal. There is trace to mild mitral regurgitation. The tricuspid valve appears structurally normal. Trace/mild (physiologic) pulmonic regurgitation. The aortic root size is normal. Normal inferior vena cava with normal inspiratory collapse consistent with estimated right atrial pressure of 5 mmHg. There is no pericardial effusion. CONCLUSIONS -------- 1. Sinus rhythm. 2. There is trace to mild mitral regurgitation. 3. The tricuspid valve appears structurally normal. 4. Trace/mild (physiologic) pulmonic regurgitation. 5. The aortic root size is normal. 6. Normal inferior vena cava with normal inspiratory collapse consistent with estimated right atrial pressure of 5 mmHg. 7. There is no pericardial effusion. 8. This was a technically good study. 9. The left ventricular size is normal. 10. There is borderline concentric left ventricular hypertrophy. 11. Overall left ventricular systolic function is normal with, an EF between 55 - 60 %. 12. The right ventricle is normal in size. 13. Normal LA size by volume 22+/-6 ml/m2. 14. The right atrium is normal in size. 15. The aortic valve is trileaflet and appears structurally normal. [employer] OPERATOR: Juliana Shane RDCS
--- NOTE | 2016-08-13 10:36 | PN ---
DATE OF SERVICE: 08/13/2016 He is less short of breath and is lying flat in bed. On physical examination, his blood pressure 100/56, respiratory rate 18, pulse rate of 94, temperature 97.9. O2 sat on 2 liters by nasal cannula is 94%. HEENT is unremarkable. Chest reveals decreased breath sounds, but no clear wheeze today. Cardiovascular system reveals an S1, S2. ABDOMEN: Soft. There is no pedal edema. Chest x-ray was reviewed, which shows atelectatic change in the left, cannot rule out early pneumonia. IMPRESSION: 1. Acute respiratory failure secondary to bronchospasm from chronic obstructive pulmonary disease with asthma with acute exacerbation. 2. Pneumonia due to aspiration etiology as it is in the lower zone versus gram-negative. 3. Congestive heart failure. 4. Ventricular tachycardia. 5. Baseline minimal lung fibrosis with calcifications, which are chronic. At this point in time, from a pulmonary standpoint, continue Levaquin. Continue bronchodilators, aerosolized steroids, DVT and GI prophylaxis. Switch him to oral steroids which can be tapered. Increase his activity level. He seems to be doing better than the previous day. He was counseled regarding his condition. We will follow him closely with you during his hospital stay.
--- NOTE | 2016-08-13 11:11 | P.CRDCN ---
History of Present Illness Consult date: 08/13/16 Chief complaint: Shortness of breath History of present illness: This is a pleasant 86-year-old gentleman with a past medical history significant for hypertension, dyslipidemia, coronary artery disease, and paroxysmal atrial fibrillation, presented to the hospital complaining of progressive dyspnea associated with productive cough. The patient was diagnosed with pneumonia and he was started on antibiotic. During his hospitalization he developed yesterday an episode of nonsustained ventricular tachycardia. The patient was completely asymptomatic during that episode. He denies having any chest pain or discomfort and he stated that the shortness of breath is slightly better compared to before. The EKG showed sinus rhythm without any significant ST or T-wave abnormalities. The chest x-ray showed chronic changes only. The BNP came in to be elevated and the patient was started on IV Lasix. He underwent an echocardiogram which showed normal LV function without any significant valvular abnormalities. The patient magnesium was on the low limits of normal. I recommended increasing the dose of metoprolol. Decrease the dose of IV Lasix in view of worsening kidney function. Replace the magnesium. Follow-up with the patient. 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 History of Any Multi-Drug Resistant Organisms: MRSA Date of last positivie culture/infection: 01/2011 MDRO Source:: urine per pt and his daughter. Past Surgical History: Cholecystectomy, Joint Replacement, Orthopedic Surgery Additional Past Surgical History / Comment(s): 2010 cholecystectomy, 2013 biliary stenting (removed), R knee arthroscopy, R knee total arthroplasty, colonoscopy with benign polypectomy. Past Anesthesia/Blood Transfusion Reactions: No Reported Reaction Past Psychological History: Anxiety, Depression Additional Psychological History / Comment(s): Pt states he has depression and has thought of suicide in the past but currently has no thought or plan of suicide and does not wish to be . Pt resides with his spouse and their daughter, Diane is living with them at this time. Pt uses his spouses cane to ambulate. He drives but julieta is planning to encourage pt to quit driving. Pt's julieta, Diane manages his medications and is looking into getting him meals on wheels. Smoking Status: Former smoker Past Alcohol Use History: None Reported Additional Past Alcohol Use History / Comment(s): Pt smoked while he was in the [employer]- [id number]. Pt used to drink alcohol on occasion but has not drank any in 2 yrs. Past Drug Use History: None Reported - Past Family History Mother Family Medical History: No Reported History Additional Family Medical History / Comment(s): Mother at the age of 96yrs. Father Family Medical History: Liver Disease Additional Family Medical History / Comment(s): Father was an alcoholic and of liver cirrhosis at the age of 67yrs. Medications and Allergies Home Medications Medication Instructions Recorded Confirmed Type HYDROcodone/APAP 10-325MG [Welling 1 tab PO TID PRN 05/01/14 08/12/16 History 10] Omeprazole [PriLOSEC] 20 mg PO DAILY 05/01/14 08/12/16 History Tamsulosin HCl [Flomax] 0.4 mg PO HS 05/01/14 08/12/16 History Aspirin 81 mg PO DAILY 08/12/16 08/12/16 History Citalopram Hydrobromide 40 mg PO HS 08/12/16 08/12/16 History Metoprolol Tartrate [Lopressor] 12.5 mg PO BID 08/12/16 08/12/16 History fentaNYL 25MCG/HR PATCH [Duragesic 25 mcg TRANSDERM Q72H PRN 08/12/16 08/12/16 History 25MCG/HR] guaiFENesin SYRUP 100MG/5ML 200 mg PO Q6H PRN 08/12/16 08/12/16 History [Robitussin] rOPINIRole HCL 0.5 mg PO HS 08/12/16 08/12/16 History Allergies Allergy/AdvReac Type Severity Reaction Status Date / Time No Known Allergies Allergy Verified 08/12/16 08:41 Physical Exam Vitals: Vital Signs Temp Pulse Pulse Pulse Resp BP Pulse Ox 08/13/16 08:00 18 08/13/16 07:15 66 08/13/16 07:00 97.9 F 94 18 100/56 94 L 08/13/16 06:53 66 08/13/16 03:46 60 08/13/16 03:37 60 08/13/16 00:09 64 08/12/16 23:59 60 08/12/16 22:07 96.0 F L 61 16 101/54 97 08/12/16 20:52 78 08/12/16 20:36 74 08/12/16 16:58 72 08/12/16 16:48 72 08/12/16 16:00 61 08/12/16 15:00 97 F L 61 20 141/72 95 08/12/16 11:36 68 08/12/16 11:22 68 Intake and Output 08/12/16 08/13/16 08/13/16 22:59 06:59 14:59 Intake Total 590 590 Output Total 300 400 Balance 290 190 Intake: Oral 590 590 Output: Urine 300 400 Other: Voiding Method Urinal Urinal Urinal # Voids 1 Weight 72.575 kg 72.575 kg 65 kg Patient Weight 08/14/16 06:59 Weight 65 kg - Constitutional General appearance: no acute distress - Respiratory Respiratory: bilateral: diminished - Cardiovascular Rhythm: regular Heart sounds: normal: S1, S2 Results 08/13/16 07:20 08/13/16 07:20 Cardiac Enzymes 08/13/16 Range/Units 07:20 AST 34 (17-59) U/L CBC 08/13/16 Range/Units 07:20 WBC 11.2 H (3.8-10.6) k/uL RBC 3.73 L (4.30-5.90) m/uL Hgb 11.0 L (13.0-17.5) gm/dL Hct 33.5 L (39.0-53.0) % Plt Count 220 (150-450) k/uL Comprehensive Metabolic Panel 08/13/16 Range/Units 07:20 Sodium 138 (137-145) mmol/L Potassium 3.7 (3.5-5.1) mmol/L Chloride 103 (98-107) mmol/L Carbon Dioxide 17 L (22-30) mmol/L BUN 39 H (9-20) mg/dL Creatinine 2.57 H (0.66-1.25) mg/dL Glucose 164 H (74-99) mg/dL Calcium 8.7 (8.4-10.2) mg/dL AST 34 (17-59) U/L ALT 38 (21-72) U/L Alkaline Phosphatase 82 (38-126) U/L Total Protein 6.6 (6.3-8.2) g/dL Albumin 3.5 (3.5-5.0) g/dL Current Medications Generic Name Dose Route Start Last Admin Trade Name Freq PRN Reason Stop Dose Admin Acetaminophen/Hydrocodone Bitart 1 each 08/12/16 05:56 08/12/16 22:38 Welling 10 PO 1 each Q4HR PRN Administration Pain Albuterol/Ipratropium 3 ml 08/12/16 08:00 08/13/16 06:53 Duoneb 0.5 Mg-3 Mg/3 Ml Soln INHALATION 3 ml RT-Q4H KEELY Administration Aspirin 81 mg 08/12/16 09:00 08/13/16 08:43 Aspirin PO 81 mg DAILY KEELY Administration Budesonide 0.5 mg 08/12/16 20:00 08/13/16 06:53 Pulmicort INHALATION 0.5 mg RT-BID KEELY Administration Citalopram Hydrobromide 40 mg 08/13/16 21:00 Celexa PO HS KEELY Enoxaparin Sodium 40 mg 08/13/16 09:00 08/13/16 08:43 Lovenox SQ 40 mg DAILY KEELY Administration Furosemide 40 mg 08/12/16 09:00 08/13/16 08:43 Lasix IV 40 mg Q12HR KEELY Administration Guaifenesin 200 mg 08/12/16 12:54 Robitussin PO Q6H PRN Cough Sodium Chloride 1,000 mls @ 20 mls/hr 08/12/16 06:00 08/12/16 08:26 Saline 0.9% IV 20 mls/hr .Q24H KEELY Administration Magnesium Sulfate/Dextrose 1 100 mls @ 100 mls/hr 08/13/16 11:00 gm/ IV Solution IVPB 08/13/16 12:59 Q1H KEELY Isosorbide Mononitrate 30 mg 08/12/16 13:00 08/13/16 08:43 Imdur PO 30 mg DAILY KEELY Administration Levofloxacin 750 mg 08/13/16 09:00 08/13/16 08:43 Levaquin PO 08/18/16 09:01 750 mg DAILY KEELY Administration Metoprolol Tartrate 25 mg 08/13/16 11:30 Lopressor PO BID KEELY Miscellaneous Information 1 each 08/12/16 05:53 Pneumonia Protocol Utilized PO ONCE PRN Per Protocol Pantoprazole Sodium 40 mg 08/12/16 09:00 08/13/16 08:43 Protonix PO 40 mg DAILY KEELY Administration Prednisone 60 mg 08/13/16 10:00 PO DAILY KEELY Ropinirole HCl 0.5 mg 08/12/16 09:00 08/13/16 08:43 Requip PO 0.5 mg DAILY KEELY Administration Tamsulosin HCl 0.4 mg 08/12/16 09:00 08/13/16 08:43 Flomax PO 0.4 mg DAILY KEELY Administration Intake and Output 08/12/16 08/13/16 08/13/16 22:59 06:59 14:59 Intake Total 590 590 Output Total 300 400 Balance 290 190 Intake: Oral 590 590 Output: Urine 300 400 Other: Voiding Method Urinal Urinal Urinal # Voids 1 Weight 72.575 kg 72.575 kg 65 kg Patient Weight 08/14/16 06:59 Weight 65 kg 08/13/16 07:20 08/13/16 07:20 Assessment and Plan Plan: Assessment #1 congestive heart failure exacerbation secondary to diastolic dysfunction #2 an episode of nonsustained VT likely to be triggered by the hypomagnesemia #3 paroxysmal atrial fibrillation #4 multiple comorbid conditions Plan #1 replace the magnesium #2 increase the dose of metoprolol #3 decrease the dose of Lasix #4 follow-up with the patient
[2016-08-13] MEDS: SODIUM CHLORIDE 0.9% 1,000 ML IV SCH (11:12)
[2016-08-13] MEDS: MAGNESIUM SULFATE-D5W PMX 1 GM in DEXTROSE/WATER 1 100ML.BAG IVPB SCH ×2 (11:52→13:41)
[2016-08-13] MEDS: METOPROLOL TARTRATE 25 MG TAB PO SCH ×2 (11:53→21:06)
[2016-08-13] MEDS: predniSONE 20 MG TAB PO SCH (11:53)
[2016-08-13] MEDS: HYDROcodone/APAP 10-325MG 1 EACH TAB PO PRN ×2 (13:40→18:01)
--- NOTE | 2016-08-13 15:09 | P.PN ---
Subjective 86-year-old male one of my office patient with long-standing history of A. 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 Also patient has been seen for chronic back pain and pain management has been on hydrocodone and fentanyl smaller dose has been doing well with it. Patient had developed worsening bronchitis with cough productive Dr. phlegm 2 weeks ago was treated with oral antibiotic as an outpatient he felt slightly bit better with his symptoms become much worse over the last 48 hours ended up having inspiratory expiratory wheezes with cough productive of dark phlegm not been able to lay down flat in bed and has been restless weak tired not been able to eat or drink. Patient ended up coming to the emergency department at [facility] where was seen and evaluated his harsh cough and clinical finding more suggestive of severe pneumonitis with COPD exacerbation, his BNP was quite bit elevated and diagnosed with CHF as well. Shortly after his admission he developed to have a run of V. tach close to 30 beats he was not symptomatic except had mild fatigue and tiredness from it. 08/13: Patient is followed by pulmonary medicine, Dr. Mahmood. Dr. Torres is recommended increasing dose of metoprolol and decreasing IV Lasix. Magnesium was replaced. Repeat BUN 39 creatinine 2.57. He is currently on oral prednisone. Objective - Vital Signs Vital signs: Vital Signs Temp 97.9 F 08/13/16 07:00 Pulse 66 08/13/16 11:11 Resp 18 08/13/16 08:00 BP 100/56 08/13/16 07:00 Pulse Ox 94 L 08/13/16 07:00 Intake & Output 08/12/16 08/13/16 08/13/16 18:59 06:59 18:59 Intake Total 200 1180 Output Total 700 Balance 200 480 Weight 72.575 kg 72.575 kg 65 kg Intake: Intake, IV Titration 200 Amount Levofloxacin 750Mg-D5w 150 Pmx 750 mg In Dextrose/ Water 1 150ml.bag @ 100 mls/hr IVPB ONCE STA Rx#: [id number] Piperacillin-Tazobactam 3 50 .375 gm In Dextrose/Water 1 50ml.bag @ 12.5 mls/hr IVPB Q8HR [facility] Rx#: [id number] Oral 1180 Output: Urine 700 Other: Voiding Method Urinal Urinal Urinal # Voids 1 - Exam General appearance: no average body habitus, cooperative, disheveled, mild distress, no morbidly obese, no no acute distress, no obese, no severe distress , no thin - EENT Eyes: no abnormal pupil, no anicteric sclerae, no disc margins sharp, no edentulous, no EOMI, no PERRLA, no fundus normal, no photophobia, no dentition normal, no poor dentition, no ptosis, no scleral icterus, normal appearance ENT: no hard of hearing, no hearing grossly normal, no NA/AT, normal oropharynx , no other, no pharyngeal erythema, no thrush, no tonsillar exudates, no tonsillar swelling Ears: bilateral: normal - Neck Neck: no lymphadenopathy, normal ROM, no other, no rigidity, no stridor, no thyromegaly Carotids: bilateral: upstroke normal, upstroke delayed Thyroid: bilateral: normal size - Respiratory Respiratory: bilateral: diminished, dullness, rales, rhonchi, wheezing, prolonged expiration - Cardiovascular Rhythm: regular Heart sounds: normal: S1, S2 Abnormal Heart Sounds: systolic murmur, S3 Gallop - Gastrointestinal General gastrointestinal: no absent bowel sounds, decreased bowel sounds, distended, hepatomegaly, no hyperactive bowel sounds, no normal bowel sounds, no organomegaly, no rigid, scaphoid, soft, splenomegaly, no tenderness, no umbilical hernia, no ventral hernia - Integumentary Integumentary: no calor, cellulitis, no cyanotic, decreased turgor, flushed, no jaundiced, normal, no normal turgor, pale, rash, no ulcer - Neurologic Neurologic: CNII-XII intact - Musculoskeletal Musculoskeletal: gait normal, generalized weakness, strength equal bilaterally, no right sided weakness, no left sided weakness - Psychiatric Psychiatric: A&O x's 3, appropriate affect - Labs CBC & Chem 7: 08/13/16 07:20 08/13/16 07:20 Labs: Abnormal Lab Results - Last 24 Hours (Table) 08/13/16 08/13/16 Range/Units 07:20 07:20 WBC 11.2 H (3.8-10.6) k/uL RBC 3.73 L (4.30-5.90) m/uL Hgb 11.0 L (13.0-17.5) gm/dL Hct 33.5 L (39.0-53.0) % Neutrophils # 9.9 H (1.3-7.7) k/uL Lymphocytes # 0.9 L (1.0-4.8) k/uL Carbon Dioxide 17 L (22-30) mmol/L BUN 39 H (9-20) mg/dL Creatinine 2.57 H (0.66-1.25) mg/dL Glucose 164 H (74-99) mg/dL Microbiology - Last 24 Hours (Table) 08/12/16 17:45 Urine Culture - Preliminary Urine,Clean Catch Assessment and Plan Plan: 1 acute respiratory failure: Combination of COPD/bronchospasm, severe purulent tracheal bronchitis with early pneumonitis, arrhythmia mostly A. fib with V. tach and systolic dysfunction congestive heart failure subacute on acute causing slight degree of pulmonary edema. 2 COPD exacerbation: Patient will be on Solu-Medrol 60 mg every 6 hours around- the-clock continue DuoNeb and Pulmicort will consult pulmonary repeat another chest x-ray in 48 hours. 3 severe purulent tracheal bronchitis and early pneumonitis: Patient was started on Zosyn and Levaquin continue current medication and treatment continue coverage for gram-negative at this point. 4 congestive heart failure exacerbation: Subacute on acute systolic dysfunction with elevated BNP and significant fluid retention patient will remain on diuretics and will add nitro this point echocardiogram was order and patient be seen cardiology. 5 V. tach: Patient be seen cardiology might require to be on IV antiarrhythmic versus oral amiodarone continue car usher testing including troponin BNP and CK will be done. 6 mild pulmonary fibrosis and multiple calcified pulmonary nodular: Patient be seen pulmonary down the road might require to have bronchoscopy. 7 chronic kidney disease: Stage III continue mild hydration repeat CMP daily. 8 anemia: Continue to watch for any significant bleed, patient will have CBC daily. 9 chronic pain syndrome: Has been on fentanyl and hydrocodone continue both medication. 10 severe BPH: Has been on tamsulosin 0.4 mg daily. 11 A. fib with RVR: Pulse rate has been under control patient has been on metoprolol 12.5 g twice a day surprisingly is not a candidate for anticoagulation specially with his recurrent GI bleed in the past and pseudo- cyst along with recurrent peptic ulcer disease and GI bleed continue medical management with no anticoagulation specially with the type of anemia he has. 12 restless leg syndrome: Has been on Requip 0.5 mg daily at bedtime. 13 chronic depression: Patient has been on citalopram 40 mg daily. 14 severe GERD/GI prophylaxis: Patient was started on pantoprazole 40 mg daily he was on omeprazole as an outpatient. 15 DVT prophylaxis: Patient will be on Lovenox 40 mg subcutaneous daily. CODE STATUS: Full code. Discharge plan: on Wednesday Impression and plan of care have been directed as dictated by the signing physician. Danni Luevano nurse practitioner acting as scribe for signing physician. Time with Patient: Greater than 30
--- NOTE | 2016-08-13 17:15 | CDI ---
In responding to this query, please exercise your independent professional judgment. The [facility] Coding Staff and Clinical Documentation Specialists appreciate your assistance in clarifying documentation, maintaining compliance with coding guidelines, accurately documenting patients condition and capturing severity of illness. The fact that a question is asked does not imply that any particular answer is desired or expected. Communication forms are a method of clarifying documentation and are not made part of the Legal Health Record. Thank you in advance for your clarification. Last Revision, April 2015 Hermes Thomas [address] [place] [address] Documentation Clarification Form Date: 08/13/2016 5:04:00 PM From: Adelia Harrison CCS, CCDS Admit Date: 08/12/2016 5:53:00 AM Patient Name: German Sweet Visit Number: [id number] Discharge Date: Dr. Alex Beck: Per the 08/12 H&P (Dr. Ramila Beck): Congestive heart failure exacerbation: subacute on acute systolic dysfunction. Per the 08/13 Cardiology Consult (Dr. Nichole Torres): Congestive heart failure exacerbation secondary to diastolic dysfunction. Patient history/risk factors: CAD, Atrial Fibrillation, Hypertension & Hyperlipidemia. Clinical Indicators: Elevated BNP: 4180 ECHO: Left ventricular systolic function is normal with an EF between 55-60%. Radiology findings: CXR: Chronic lung changes, Mild cardiomegaly and atherosclerotic calcification, Mild atelectasis. Treatment: IV Lasix, Albuterol Neb INH, IV Solumedrol, IV Zosyn, IV Levaquin, O2 2Lnc Consults: Pulmonary, Cardiology In your professional opinion, can you please clarify the type of congestive heart failure? Systolic Diastolic Combined Systolic & Diastolic Other Unable to determine Also include if Acute, Chronic or Acute on Chronic Please document in your progress notes and discharge summary in order to capture severity of illness and risk of mortality. Include clinical findings that support your diagnosis. FYI: Press F11 to launch patient chart. Place X here if this finding has no clinical significance, is not applicable or if you are not able to provide any additional documentation. Thank You. SHAD
[2016-08-13] MEDS: CITALOPRAM HYDROBROMIDE 20 MG TAB PO SCH (21:05)
[2016-08-14] MEDS: IPRATROPIUM-ALBUTEROL 3 ML NEB INHALATION SCH ×5 (03:44→19:53)
[2016-08-14] MEDS: BUDESONIDE 0.5 MG/2 ML NEBU INHALATION SCH ×2 (08:03→19:53)
[2016-08-14 08:35] LABS: CH 29.8; CHCM 33.7; HCT 31.6 % (39.0-53.0); HGB 10.5 gm/dL (13.0-17.5); MCH 29.5 pg (25.0-35.0); MCHC 33.1 g/dL (31.0-37.0); Mean Platelet Volume 7.1; RBC 3.55 m/uL (4.30-5.90); RDW 14.1 % (11.5-15.5); WBC 12.4 k/uL (3.8-10.6)
[2016-08-14] MEDS: ASPIRIN 81 MG CHEW PO SCH (08:48)
[2016-08-14] MEDS: ISOSORBIDE MONONITRATE ER 30 MG TAB.ER.24H PO SCH (08:48)
[2016-08-14] MEDS: METOPROLOL TARTRATE 25 MG TAB PO SCH ×2 (08:48→21:20)
[2016-08-14] MEDS: ENOXAPARIN 30 MG/0.3 ML SYRINGE SQ SCH (08:49)
[2016-08-14] MEDS: PANTOPRAZOLE 40 MG TABLET PO SCH (08:49)
[2016-08-14] MEDS: FUROSEMIDE 10 MG/ML 4 ML VIAL IV SCH (08:49)
[2016-08-14] MEDS: TAMSULOSIN 0.4 MG CAP.ER.24H PO SCH (08:49)
[2016-08-14] MEDS: predniSONE 20 MG TAB PO SCH (08:49)
[2016-08-14 08:52] LABS: Calcium 8.9 mg/dL (8.4-10.2); Potassium 4.7 mmol/L (3.5-5.1); Total Bilirubin 0.7 mg/dL (0.2-1.3); Total Protein 6.5 g/dL (6.3-8.2)
[2016-08-14] MEDS: SODIUM CHLORIDE 0.9% 1,000 ML IV SCH (09:41)
[2016-08-14] MEDS: HYDROcodone/APAP 10-325MG 1 EACH TAB PO PRN ×2 (09:56→20:21)
--- NOTE | 2016-08-14 11:25 | P.PN ---
Subjective Principal diagnosis: Generalized weakness Patient seen and examined. Patient states his breathing feels better. He is still coughing up a lot of phlegm. He feels weak as well. He denies fevers and chills. Objective - Vital Signs Vital signs: Vital Signs Temp 97.7 F 08/14/16 07:00 Pulse 80 08/14/16 08:16 Resp 18 08/14/16 08:00 BP 123/65 08/14/16 07:00 Pulse Ox 97 08/14/16 07:00 Intake & Output 08/13/16 08/14/16 08/14/16 18:59 06:59 18:59 Output Total 150 Balance -150 Weight 65 kg 68.3 kg Output: Urine 150 Other: Voiding Method Urinal Urinal Toilet Urinal # Voids 1 # Bowel Movements 1 - Exam Gen.: Patient is alert and oriented 3, no acute distress, hard of hearing Cardiovascular: Regular rate and rhythm, S1/S2 Lungs: Coarse breath sounds bilaterally Abdomen: Soft nontender nondistended positive bowel sounds Extremities: No edema - Labs CBC & Chem 7: 08/14/16 07:36 08/14/16 07:36 Labs: Abnormal Lab Results - Last 24 Hours (Table) 08/14/16 08/14/16 Range/Units 07:36 07:36 WBC 12.4 H (3.8-10.6) k/uL RBC 3.55 L (4.30-5.90) m/uL Hgb 10.5 L (13.0-17.5) gm/dL Hct 31.6 L (39.0-53.0) % Sodium 136 L (137-145) mmol/L BUN 57 H (9-20) mg/dL Creatinine 3.31 H (0.66-1.25) mg/dL Glucose 128 H (74-99) mg/dL Albumin 3.4 L (3.5-5.0) g/dL Microbiology - Last 24 Hours (Table) 08/12/16 17:45 Urine Culture - Final Urine,Clean Catch Assessment and Plan Plan: Acute hypoxic respiratory failure Acute bronchospasm Tracheobronchitis 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 tach Chronic kidney disease Anemia O2 to maintain saturation greater than or equal to 88% Prednisone taper Pulmicort and bronchodilators Antibiotics: Levaquin Sputum culture pending Cardiology consult for V. tach Incentive spirometry and pulmonary hygiene PT and OT Dietitian recommendations
--- NOTE | 2016-08-14 12:47 | P.PN ---
Progress Note - Text This is a pleasant 86-year-old gentleman with a past medical history significant for hypertension, dyslipidemia, coronary artery disease, and paroxysmal atrial fibrillation, presented to the hospital complaining of progressive dyspnea associated with productive cough. The patient was diagnosed with pneumonia and he was started on antibiotic. During his hospitalization he developed yesterday an episode of nonsustained ventricular tachycardia. The patient was completely asymptomatic during that episode. He denies having any chest pain or discomfort and he stated that the shortness of breath is slightly better compared to before. The EKG showed sinus rhythm without any significant ST or T-wave abnormalities. The chest x-ray showed chronic changes only. The BNP came in to be elevated and the patient was started on IV Lasix. He underwent an echocardiogram which showed normal LV function without any significant valvular abnormalities. I did increase the dose of metoprolol and also replace the potassium. The patient did not have any more episodes of non-sustained VT. The creatinine seems to be slightly worse today and I decreased the dose of Lasix IV. We'll continue monitor the kidney function and electrolytes and change to Lasix by mouth tomorrow.
--- NOTE | 2016-08-14 14:40 | P.PN ---
Subjective 86-year-old male one of my office patient with long-standing history of A. 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 Also patient has been seen for chronic back pain and pain management has been on hydrocodone and fentanyl smaller dose has been doing well with it. Patient had developed worsening bronchitis with cough productive Dr. phlegm 2 weeks ago was treated with oral antibiotic as an outpatient he felt slightly bit better with his symptoms become much worse over the last 48 hours ended up having inspiratory expiratory wheezes with cough productive of dark phlegm not been able to lay down flat in bed and has been restless weak tired not been able to eat or drink. Patient ended up coming to the emergency department at [facility] where was seen and evaluated his harsh cough and clinical finding more suggestive of severe pneumonitis with COPD exacerbation, his BNP was quite bit elevated and diagnosed with CHF as well. Shortly after his admission he developed to have a run of V. tach close to 30 beats he was not symptomatic except had mild fatigue and tiredness from it. 08/13: Patient is followed by pulmonary medicine, Dr. Mahmood. Dr. Torres is recommended increasing dose of metoprolol and decreasing IV Lasix. Magnesium was replaced. Repeat BUN 39 creatinine 2.57. He is currently on oral prednisone. 08/14: Patient's kidney function has worsened with BUN of 57 creatinine 3.31. Nephrology consult added. He has had good urine output. Ultrasound of the kidneys ordered. Dr. Torres has signed off this case. Objective - Vital Signs Vital signs: Vital Signs Temp 97.7 F 08/14/16 07:00 Pulse 86 08/14/16 12:11 Resp 18 08/14/16 08:00 BP 123/65 08/14/16 07:00 Pulse Ox 97 08/14/16 07:00 Intake & Output 08/13/16 08/14/16 08/14/16 18:59 06:59 18:59 Output Total 150 500 Balance -150 -500 Weight 65 kg 68.3 kg Output: Urine 150 500 Other: Voiding Method Urinal Urinal Toilet Urinal # Voids 1 # Bowel Movements 1 - Exam General appearance: no average body habitus, cooperative, disheveled, mild distress, no morbidly obese, no no acute distress, no obese, no severe distress , no thin - EENT Eyes: no abnormal pupil, no anicteric sclerae, no disc margins sharp, no edentulous, no EOMI, no PERRLA, no fundus normal, no photophobia, no dentition normal, no poor dentition, no ptosis, no scleral icterus, normal appearance ENT: no hard of hearing, no hearing grossly normal, no NA/AT, normal oropharynx , no other, no pharyngeal erythema, no thrush, no tonsillar exudates, no tonsillar swelling Ears: bilateral: normal - Neck Neck: no lymphadenopathy, normal ROM, no other, no rigidity, no stridor, no thyromegaly Carotids: bilateral: upstroke normal, upstroke delayed Thyroid: bilateral: normal size - Respiratory Respiratory: bilateral: diminished, dullness, rales, rhonchi, wheezing, prolonged expiration - Cardiovascular Rhythm: regular Heart sounds: normal: S1, S2 Abnormal Heart Sounds: systolic murmur, S3 Gallop - Gastrointestinal General gastrointestinal: no absent bowel sounds, decreased bowel sounds, distended, hepatomegaly, no hyperactive bowel sounds, no normal bowel sounds, no organomegaly, no rigid, scaphoid, soft, splenomegaly, no tenderness, no umbilical hernia, no ventral hernia - Integumentary Integumentary: no calor, cellulitis, no cyanotic, decreased turgor, flushed, no jaundiced, normal, no normal turgor, pale, rash, no ulcer - Neurologic Neurologic: CNII-XII intact - Musculoskeletal Musculoskeletal: gait normal, generalized weakness, strength equal bilaterally, no right sided weakness, no left sided weakness - Psychiatric Psychiatric: A&O x's 3, appropriate affect - Labs CBC & Chem 7: 08/14/16 07:36 08/14/16 07:36 Labs: Abnormal Lab Results - Last 24 Hours (Table) 08/14/16 08/14/16 Range/Units 07:36 07:36 WBC 12.4 H (3.8-10.6) k/uL RBC 3.55 L (4.30-5.90) m/uL Hgb 10.5 L (13.0-17.5) gm/dL Hct 31.6 L (39.0-53.0) % Sodium 136 L (137-145) mmol/L BUN 57 H (9-20) mg/dL Creatinine 3.31 H (0.66-1.25) mg/dL Glucose 128 H (74-99) mg/dL Albumin 3.4 L (3.5-5.0) g/dL Microbiology - Last 24 Hours (Table) 08/12/16 17:45 Urine Culture - Final Urine,Clean Catch Assessment and Plan Plan: 1 acute respiratory distress: Combination of COPD/bronchospasm, severe purulent tracheal bronchitis with early pneumonitis, arrhythmia mostly A. fib with V. tach and acute on chronic systolic heart failure causing slight degree of pulmonary edema. 2 COPD exacerbation: Oral prednisone, DuoNeb and Pulmicort will consult pulmonary repeat another chest x-ray in 48 hours. 3 severe purulent tracheal bronchitis and early pneumonitis: Patient was started on Zosyn and Levaquin continue current medication and treatment continue coverage for gram-negative at this point. 4 congestive heart failure exacerbation: Subacute on acute systolic dysfunction with elevated BNP and significant fluid retention patient will remain on diuretics and will add nitro this point echocardiogram was order and patient be seen cardiology. 5 V. tach: Patient be seen cardiology might require to be on IV antiarrhythmic versus oral amiodarone continue lunchroom monitor testing including troponin BNP and CK will be done. 6 mild pulmonary fibrosis and multiple calcified pulmonary nodular: Patient be seen pulmonary down the road might require to have bronchoscopy. 7 acute kidney injury chronic kidney disease: Stage III continue mild hydration repeat CMP daily. Nephrology consult added. 8 anemia: Continue to watch for any significant bleed, patient will have CBC daily. 9 chronic pain syndrome: Has been on fentanyl and hydrocodone continue both medication. 10 severe BPH: Has been on tamsulosin 0.4 mg daily. 11 A. fib with RVR: Pulse rate has been under control patient has been on metoprolol 12.5 g twice a day surprisingly is not a candidate for anticoagulation specially with his recurrent GI bleed in the past and pseudo- cyst along with recurrent peptic ulcer disease and GI bleed continue medical management with no anticoagulation specially with the type of anemia he has. 12 restless leg syndrome: Has been on Requip 0.5 mg daily at bedtime. 13 chronic depression recurrent: Patient has been on citalopram 40 mg daily. 14 severe GERD/GI prophylaxis: Patient was started on pantoprazole 40 mg daily he was on omeprazole as an outpatient. 15 DVT prophylaxis: Patient will be on Lovenox 40 mg subcutaneous daily. CODE STATUS: Full code. Discharge plan: on Wednesday Impression and plan of care have been directed as dictated by the signing physician. Danni Luevano nurse practitioner acting as scribe for signing physician. Time with Patient: Greater than 30
--- NOTE | 2016-08-14 15:08 | US ---
EXAMINATION TYPE: US renals and bladder DATE OF EXAM: 08/14/2016 2:35 PM COMPARISON: CT abdomen and pelvis April 14, 2013. CLINICAL HISTORY: LUCI. EXAM MEASUREMENTS: Right Kidney: 9.3 x 3.8 x 3.4 cm Left Kidney: 9.2 x 4.0 x 3.7 cm TECHNOLOGIST IMPRESSION: Right Kidney: thin renal cortex, no evidence of hydronephrosis Left Kidney: thin renal cortex, echogenic in appearance Bladder: probable nonshadowing echogenic area posterior wall = 0.8cm uncertain etiology Bilateral Jets seen: no *Prostate appears prominent There is no evidence for hydronephrosis at this point in time. No nephrolithiasis is seen in images saved. No masses are identified on images saved. Cortical thinning is noted bilaterally. The urinary bladder is anechoic. Prostate gland is prominent bulging on bladder base. Bilateral ureteral jets a re not seen. IMPRESSION: No hydronephrosis is evident bilaterally. Cortical thinning consistent with chronic medical renal dis ease. Enlarged prostate redemonstrated.
[2016-08-14] MEDS ORDERED: IPRATROPIUM-ALBUTEROL 3 ML NEB INHALATION PRN (20:06)
[2016-08-14] MEDS: CITALOPRAM HYDROBROMIDE 20 MG TAB PO SCH (21:24)
[2016-08-15] MEDS: SODIUM CHLORIDE 0.9% 1,000 ML IV SCH (06:12)
[2016-08-15] MEDS: BUDESONIDE 0.5 MG/2 ML NEBU INHALATION SCH ×2 (07:03→18:46)
[2016-08-15] MEDS: IPRATROPIUM-ALBUTEROL 3 ML NEB INHALATION SCH ×4 (07:03→18:46)
[2016-08-15 07:32] LABS: Basophils % (A) 0 %; CH 29.9; CHCM 33.8; Eosinophils % (A) 0 %; HCT 31.5 % (39.0-53.0); HGB 10.4 gm/dL (13.0-17.5); Luc # (Auto) 0.16; Luc % (Auto) 2; Lymphocytes # (A) 0.8 k/uL (1.0-4.8); Lymphocytes % (A) 9 %; MCH 29.3 pg (25.0-35.0); MCV 88.7 fL (80.0-100.0); Monocytes # (A) 0.4 k/uL (0-1.0); Monocytes % (A) 4 %; Neutrophils # (A) 7.5 k/uL (1.3-7.7); Neutrophils % (A) 85 %; RBC 3.55 m/uL (4.30-5.90); RDW 14.1 % (11.5-15.5); WBC 8.8 k/uL (3.8-10.6); WBC (Perox) 9.61
[2016-08-15] MEDS: ENOXAPARIN 30 MG/0.3 ML SYRINGE SQ SCH (07:33)
[2016-08-15] MEDS: predniSONE 20 MG TAB PO SCH (07:34)
[2016-08-15] MEDS: FUROSEMIDE 10 MG/ML 4 ML VIAL IV SCH (07:34)
[2016-08-15] MEDS: PANTOPRAZOLE 40 MG TABLET PO SCH (07:34)
[2016-08-15] MEDS: LEVOFLOXACIN 750 MG TAB PO SCH (07:35)
[2016-08-15] MEDS: ASPIRIN 81 MG CHEW PO SCH (07:35)
[2016-08-15] MEDS: TAMSULOSIN 0.4 MG CAP.ER.24H PO SCH (07:35)
[2016-08-15] MEDS: ISOSORBIDE MONONITRATE ER 30 MG TAB.ER.24H PO SCH (07:35)
[2016-08-15] MEDS: METOPROLOL TARTRATE 25 MG TAB PO SCH ×2 (07:36→21:00)
[2016-08-15 07:38] LABS: Calcium 8.7 mg/dL (8.4-10.2); Potassium 4.2 mmol/L (3.5-5.1)
--- NOTE | 2016-08-15 11:13 | P.PN ---
Subjective Principal diagnosis: Generalized weakness Patient seen and examined. Patient states his breathing and cough are getting better. His phlegm is improving. He is still complaining of generalized weakness. He is also complaining of decreased appetite. He is concerned because he is not eating very well. Objective - Vital Signs Vital signs: Vital Signs Temp 97.6 F 08/15/16 07:00 Pulse 76 08/15/16 11:03 Resp 18 08/15/16 08:00 BP 136/73 08/15/16 07:00 Pulse Ox 95 08/15/16 07:00 Intake & Output 08/14/16 08/15/16 08/15/16 18:59 06:59 18:59 Intake Total 200 Output Total 500 200 Balance -500 200 -200 Weight 68.3 kg 68.3 kg Intake: Oral 200 Output: Urine 500 200 Other: Voiding Method Toilet Toilet Urinal Urinal # Voids 3 - Exam Gen.: Patient is alert and oriented 3, no acute distress, hard of hearing Cardiovascular: Regular rate and rhythm, S1/S2 Lungs: Diminished breath sounds bilaterally, otherwise clear Abdomen: Soft nontender nondistended positive bowel sounds Extremities: No edema - Labs CBC & Chem 7: 08/15/16 06:46 08/15/16 06:46 Labs: Abnormal Lab Results - Last 24 Hours (Table) 08/15/16 08/15/16 Range/Units 06:46 06:46 RBC 3.55 L (4.30-5.90) m/uL Hgb 10.4 L (13.0-17.5) gm/dL Hct 31.5 L (39.0-53.0) % Lymphocytes # 0.8 L (1.0-4.8) k/uL BUN 67 H (9-20) mg/dL Creatinine 3.19 H (0.66-1.25) mg/dL Glucose 124 H (74-99) mg/dL Assessment and Plan Plan: Acute hypoxic respiratory failure Acute bronchospasm Tracheobronchitis 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 tach Chronic kidney disease Anemia O2 to maintain saturation greater than or equal to 88% Prednisone taper Pulmicort and bronchodilators Antibiotics: Levaquin Sputum culture pending Cardiology consult for V. tach Incentive spirometry and pulmonary hygiene PT and OT Dietitian recommendations Plan for discharge to [facility] on Wednesday.
--- NOTE | 2016-08-15 13:08 | P.NPCON ---
History of Present Illness - Reason for Consult Consult date: 08/15/16 acute renal failure, chronic renal failure - Chief Complaint sob, LUCI and CKD - History of Present Illness This is a 86-year-old male who is very hard of hearing and very difficult to obtain history from. He is being seen because of worsening creatinine. His creatinine was 1.7 dated 08/12/2016 on admission went up to 3.31 yesterday and is slightly better at 3.19 today. His baseline creatinine is 2.3 as of 05/01/2014 more than 2 years ago. Urinalysis done on admission is benign without any proteinuria. He is admitted with cough and wheezing. He was diagnosed to have bronchitis about 2 weeks ago and was probably treated with some antibiotics. This does not improve therefore he was admitted. There is some history of shortness of breath. He has been diuresed since admission. He has been treated with inhalers as well. He is known with COPD, atrial fibrillation, prostate disease, pancreatitis in the past MRSA in the past with UTI. Currently he says he has no appetite no nausea vomiting though no fever chills. Mild cough remains. No dizziness. No dysuria frequency diarrhea. 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 History of Any Multi-Drug Resistant Organisms: MRSA Date of last positivie culture/infection: 01/2011 MDRO Source:: urine per pt and his daughter. Past Surgical History: Cholecystectomy, Joint Replacement, Orthopedic Surgery Additional Past Surgical History / Comment(s): 2010 cholecystectomy, 2013 biliary stenting (removed), R knee arthroscopy, R knee total arthroplasty, colonoscopy with benign polypectomy. Past Anesthesia/Blood Transfusion Reactions: No Reported Reaction Past Psychological History: Anxiety, Depression Additional Psychological History / Comment(s): Pt states he has depression and has thought of suicide in the past but currently has no thought or plan of suicide and does not wish to be . Pt resides with his spouse and their daughter, Diane is living with them at this time. Pt uses his spouses cane to ambulate. He drives but [facility] is planning to encourage pt to quit driving. Pt's julieta, Diane manages his medications and is looking into getting him meals on wheels. Smoking Status: Former smoker Past Alcohol Use History: None Reported Additional Past Alcohol Use History / Comment(s): Pt smoked while he was in the [employer]- [id number]. Pt used to drink alcohol on occasion but has not drank any in 2 yrs. Past Drug Use History: None Reported - Past Family History Mother Family Medical History: No Reported History Additional Family Medical History / Comment(s): Mother at the age of 96yrs. Father Family Medical History: Liver Disease Additional Family Medical History / Comment(s): Father was an alcoholic and of liver cirrhosis at the age of 67yrs. Medications and Allergies Home Medications Medication Instructions Recorded Confirmed Type HYDROcodone/APAP 10-325MG [Cashiers 1 tab PO TID PRN 05/01/14 08/12/16 History 10] Omeprazole [PriLOSEC] 20 mg PO DAILY 05/01/14 08/12/16 History Tamsulosin HCl [Flomax] 0.4 mg PO HS 05/01/14 08/12/16 History Aspirin 81 mg PO DAILY 08/12/16 08/12/16 History Citalopram Hydrobromide 40 mg PO HS 08/12/16 08/12/16 History Metoprolol Tartrate [Lopressor] 12.5 mg PO BID 08/12/16 08/12/16 History fentaNYL 25MCG/HR PATCH [Duragesic 25 mcg TRANSDERM Q72H PRN 08/12/16 08/12/16 History 25MCG/HR] guaiFENesin SYRUP 100MG/5ML 200 mg PO Q6H PRN 08/12/16 08/12/16 History [Robitussin] rOPINIRole HCL 0.5 mg PO HS 08/12/16 08/12/16 History Allergies Allergy/AdvReac Type Severity Reaction Status Date / Time No Known Allergies Allergy Verified 08/12/16 08:41 Physical Exam Vitals: Vital Signs Temp Pulse Pulse Pulse Pulse Resp BP 08/15/16 11:13 78 08/15/16 11:03 76 08/15/16 08:00 80 81 61 18 08/15/16 07:15 80 08/15/16 07:03 80 08/15/16 07:00 97.6 F 81 18 136/73 08/15/16 00:00 80 08/14/16 21:29 122/60 08/14/16 21:05 98.0 F 96 16 99/46 08/14/16 20:05 84 08/14/16 19:54 84 08/14/16 16:00 16 08/14/16 15:34 90 08/14/16 15:17 88 08/14/16 15:00 97.0 F L 83 16 117/64 Pulse Ox 08/15/16 11:13 08/15/16 11:03 08/15/16 08:00 08/15/16 07:15 08/15/16 07:03 08/15/16 07:00 95 08/15/16 00:00 08/14/16 21:29 08/14/16 21:05 97 08/14/16 20:05 08/14/16 19:54 08/14/16 16:00 08/14/16 15:34 08/14/16 15:17 08/14/16 15:00 98 Intake and Output 08/14/16 08/15/16 08/15/16 22:59 06:59 14:59 Intake Total 200 0 Output Total 200 Balance 200 0 -200 Intake: Oral 200 0 Output: Urine 200 Other: Voiding Method Toilet Toilet Urinal Urinal # Voids 3 Weight 68.3 kg Patient Weight 08/16/16 06:59 Weight 68.3 kg On examination is very hard of hearing. Him to be awake alert oriented otherwise. A chin exam no JVP neck is supple no facial asymmetry no card bruit no masses felt in his neck Neck is supple. Pupils are equal. Lungs are clear to auscultation percussion good air entry bilaterally Heart sounds are unremarkable for any murmur rub gallop. Abdomen soft nontender nondistended scaphoid no masses felt Extremity exam was no edema Neurologically awake alert oriented No focal motor deficit except for the hard of hearing. Warm to touch. Results - Lab Results Most recent lab results Calcium 8.7 mg/dL (8.4-10.2) 08/15/16 06:46 Magnesium 1.6 mg/dL (1.6-2.3) 08/13/16 07:20 08/15/16 06:46 08/15/16 06:46 Assessment and Plan Plan: Impression. 1. Acute kidney injury likely from prerenal possibly volume depleted. 2. Chronic kidney disease Baseline creatinine 1.7 on admission with urinalysis is benign suggestive nephrosclerosis. Ultrasound shows kidney size 9.3 and 9.2 cm. 3. History of atrial fibrillation, controlled and plantar response. 4. History of COPD and smoker. 5. History of recent bronchitis and possibly antibiotic use 6. Bilateral deafness. 7. Prostatism with enlarged prostate seen on the ultrasound. 8. Echo shows 55-60% EF. Recommendation. 1. Check postvoid residual. Ortho static changes 2. Hold Lasix. 3. Check urine protein to creatinine ratio urine analysis. 4. Maintain orthostatic checks. Thank you for this consultation and we will continue to follow the patient tomorrow
[2016-08-15] MEDS: HYDROcodone/APAP 10-325MG 1 EACH TAB PO PRN ×2 (14:36→19:46)
[2016-08-15] MEDS: CITALOPRAM HYDROBROMIDE 20 MG TAB PO SCH (19:43)
--- NOTE | 2016-08-15 20:24 | PN ---
DATE OF SERVICE: 08/15/2016 The patient is sleepy but arousable. Denies chest pain, shortness of breath, nausea, vomiting, abdominal pain or light headedness. Nursing staff reported no events overnight. The patient had a bowel movement yesterday. PHYSICAL EXAMINATION: VITAL SIGNS: Reviewed and stable. LUNGS: Diminished bilaterally. HEART: S1 and S2. ABDOMEN: Soft, nontender. EXTREMITIES: Trace edema. PSYCH: As above. SKIN: No new rashes. Imaging and labs reviewed. ASSESSMENT AND PLAN: 1. Acute respiratory failure, seems to be improving. 2. Congestive heart failure, seems to be more compensated. Continue ( ) medications. 3. Pneumonitis, continue antibiotics at this point. 4. Severe debility and weakness, rule out DVT or PE. 5. Disposition, consider discharging to rehab facility based on clinical progress.
[2016-08-15 20:46] LABS: Sodium, Urine Random 68 mmol/L (30-90)
[2016-08-16] MEDS: HYDROcodone/APAP 10-325MG 1 EACH TAB PO PRN ×4 (02:16→21:15)
[2016-08-16] MEDS: SODIUM CHLORIDE 0.9% 1,000 ML IV SCH (05:47)
[2016-08-16 07:14] LABS: Basophils % (A) 0 %; CH 29.6; Eosinophils % (A) 0 %; HCT 33.2 % (39.0-53.0); HDW 2.66; Luc # (Auto) 0.15; Luc % (Auto) 2; Lymphocytes # (A) 1.1 k/uL (1.0-4.8); Lymphocytes % (A) 13 %; MCH 29.8 pg (25.0-35.0); MCV 90.1 fL (80.0-100.0); Mean Platelet Volume 6.6; Monocytes # (A) 0.4 k/uL (0-1.0); Monocytes % (A) 5 %; Neutrophils # (A) 6.6 k/uL (1.3-7.7); Neutrophils % (A) 80 %; RBC 3.68 m/uL (4.30-5.90); RDW 13.9 % (11.5-15.5); WBC 8.2 k/uL (3.8-10.6); WBC (Perox) 8.92
[2016-08-16] MEDS: BUDESONIDE 0.5 MG/2 ML NEBU INHALATION SCH ×2 (07:17→18:55)
[2016-08-16] MEDS: IPRATROPIUM-ALBUTEROL 3 ML NEB INHALATION SCH ×4 (07:17→18:55)
[2016-08-16 07:25] LABS: Calcium 8.7 mg/dL (8.4-10.2); Potassium 4.4 mmol/L (3.5-5.1)
[2016-08-16] MEDS: TAMSULOSIN 0.4 MG CAP.ER.24H PO SCH (08:38)
[2016-08-16] MEDS: ENOXAPARIN 30 MG/0.3 ML SYRINGE SQ SCH (08:38)
[2016-08-16] MEDS: predniSONE 20 MG TAB PO SCH (08:39)
[2016-08-16] MEDS: PANTOPRAZOLE 40 MG TABLET PO SCH (08:39)
[2016-08-16] MEDS: METOPROLOL TARTRATE 25 MG TAB PO SCH ×2 (08:39→21:12)
[2016-08-16] MEDS: ASPIRIN 81 MG CHEW PO SCH (08:40)
[2016-08-16] MEDS: ISOSORBIDE MONONITRATE ER 30 MG TAB.ER.24H PO SCH (08:40)
--- NOTE | 2016-08-16 11:30 | P.PN ---
Subjective Principal diagnosis: This is an 86-year-old male seen in consultation because of acute kidney injury and chronic kidney disease. He was admitted after having had 2 weeks of cough shortness of breath and was treated as a bronchitis as an outpatient. He was given some antibiotics. After failing to improve he was admitted. Yesterday he is feeling much better. Cough is better shortness of breath is much better. Has a good appetite no nausea vomiting. No abdominal pain no diarrhea. No dizziness. His creatinine was 1.7 on admission went up to 3.31 and then has started to improve with hydration. Creatinine was 2.87 this morning It should be noted that he is hard of hearing therefore difficult to get accurate history from He is known with COPD, atrial fibrillation, prostate disease, pancreatitis in the past MRSA in the past with UTI. Objective - Vital Signs Vital signs: Vital Signs Temp 97.8 F 08/16/16 07:00 Pulse 72 08/16/16 11:13 Resp 16 08/16/16 07:29 BP 152/75 08/16/16 07:00 Pulse Ox 96 08/16/16 07:00 Intake & Output 08/15/16 08/16/16 08/16/16 18:59 06:59 18:59 Intake Total 468 Output Total 400 630 200 Balance -400 -162 -200 Weight 68.3 kg 68.3 kg Intake: IV 100 Sodium Chloride 0.9% 1, 100 000 ml @ 20 mls/hr IV . Q24H [facility] Rx#:[id number] Oral 368 Output: Urine 400 600 200 Post Void Residual 30 Other: Voiding Method Toilet Toilet Toilet Urinal Urinal Urinal # Voids 1 1 # Bowel Movements 1 On examination is awake alert oriented. HEENT exam no JVP neck is supple no facial asymmetry. Pupils are equal. Heart sounds are unremarkable for any murmur rub gallop Abdomen soft nontender no organomegaly status masses Lungs clear to auscultation percussion fairly good air entry bilaterally Extremity exam was no edema Neurologically awake alert oriented but very hard of hearing. Moves all his extremities. - Labs CBC & Chem 7: 08/16/16 06:51 08/16/16 06:51 Labs: Abnormal Lab Results - Last 24 Hours (Table) 08/16/16 08/16/16 Range/Units 06:51 06:51 RBC 3.68 L (4.30-5.90) m/uL Hgb 11.0 L (13.0-17.5) gm/dL Hct 33.2 L (39.0-53.0) % BUN 77 H (9-20) mg/dL Creatinine 2.87 H (0.66-1.25) mg/dL Glucose 112 H (74-99) mg/dL Microbiology - Last 24 Hours (Table) 08/15/16 07:00 Gram Stain - Preliminary Sputum Assessment and Plan Plan: Impression. 1. Acute kidney injury likely from prerenal possibly volume depleted. Creatinine improved from 3.31-2.87. 2. Chronic kidney disease Baseline creatinine 1.7 on admission with urinalysis is benign suggestive nephrosclerosis. Ultrasound shows kidney size 9.3 and 9.2 cm. urine protein to creatinine ratio is less than 12/58 therefore no proteinuria. 3. History of atrial fibrillation, controlled and ventricular response. 4. History of COPD and smoker. 5. History of recent bronchitis and possibly antibiotic use 6. Bilateral deafness. 7. Prostatism with enlarged prostate seen on the ultrasound. 8. Echo shows 55-60% EF. Recommendation. 1. Continue to Hold Lasix. 2. Continue oral hydration 3. Maintain orthostatic checks. 4. we will continue to follow the patient tomorrow
--- NOTE | 2016-08-16 17:41 | PN ---
INTERVAL HISTORY: Patient continued to be hemodynamically stable. No major events reported by nursing staff. Patient is sitting up in chair. Denying chest pain, shortness breath, nausea, vomiting, abdominal pain, dizziness, lightheadedness and he said that he is at least 75% improved since admission. PHYSICAL EXAMINATION: VITAL SIGNS: Heart rate 72, respiratory rate 16, has been afebrile since yesterday, blood pressure around 140/80 and saturation above 92% all the time. LUNGS: Diminished bilaterally. HEART: Normal, S1, S2. ABDOMEN: Soft, ( ). PSYCH: Alert and oriented x2 to 3 at baseline mental status. IMAGING AND LABS: Sputum culture positive for staph aureus, blood cultures are negative. ASSESSMENT AND PLAN: 1. Acute respiratory failure. Will continue pulmonary hygiene, continue breathing treatments. Apply oxygen to maintain it above 88%. 2. Congestive heart failure seems to be improving. Will continue careful fluid balance and daily input and output, daily weight and will monitor patient's fluid status carefully. Will continue ( ) medication. 3. Pneumonitis. Will continue current antibiotics regimen, sputum culture was positive for presumptive staphylococcus. We will consult Infectious Disease for further evaluation. 4. Severe debility and weakness, will have PT, OT evaluate the patient and consider discharging patient based on their recommendation.
[2016-08-16] MEDS: CITALOPRAM HYDROBROMIDE 20 MG TAB PO SCH (21:12)
[2016-08-17] MEDS: SODIUM CHLORIDE 0.9% 1,000 ML IV SCH (05:56)
[2016-08-17 07:52] VITALS: RESP 18
[2016-08-17 08:17] LABS: Basophils % (A) 0 %; CH 29.8; CHCM 33.3; Eosinophils % (A) 0 %; HCT 32.9 % (39.0-53.0); HGB 10.9 gm/dL (13.0-17.5); Luc % (Auto) 2; Lymphocytes # (A) 1.3 k/uL (1.0-4.8); Lymphocytes % (A) 15 %; MCH 29.8 pg (25.0-35.0); MCHC 33.2 g/dL (31.0-37.0); MCV 89.8 fL (80.0-100.0); Mean Platelet Volume 6.7; Monocytes # (A) 0.4 k/uL (0-1.0); Monocytes % (A) 5 %; Neutrophils # (A) 6.8 k/uL (1.3-7.7); Neutrophils % (A) 78 %; RBC 3.66 m/uL (4.30-5.90); WBC 8.8 k/uL (3.8-10.6); WBC (Perox) 9.12
[2016-08-17 08:29] LABS: Calcium 8.6 mg/dL (8.4-10.2); Potassium 4.8 mmol/L (3.5-5.1)
[2016-08-17] MEDS: IPRATROPIUM-ALBUTEROL 3 ML NEB INHALATION SCH ×3 (08:30→15:05)
[2016-08-17] MEDS: BUDESONIDE 0.5 MG/2 ML NEBU INHALATION SCH (08:30)
[2016-08-17] MEDS: PANTOPRAZOLE 40 MG TABLET PO SCH (08:35)
[2016-08-17] MEDS: TAMSULOSIN 0.4 MG CAP.ER.24H PO SCH (08:35)
[2016-08-17] MEDS: METOPROLOL TARTRATE 25 MG TAB PO SCH (08:35)
[2016-08-17] MEDS: LEVOFLOXACIN 750 MG TAB PO SCH (08:36)
[2016-08-17] MEDS: ENOXAPARIN 30 MG/0.3 ML SYRINGE SQ SCH (08:36)
[2016-08-17] MEDS: ISOSORBIDE MONONITRATE ER 30 MG TAB.ER.24H PO SCH (08:36)
[2016-08-17] MEDS: ASPIRIN 81 MG CHEW PO SCH (08:36)
[2016-08-17] MEDS: predniSONE 20 MG TAB PO SCH (08:37)
[2016-08-17] MEDS: HYDROcodone/APAP 10-325MG 1 EACH TAB PO PRN (08:40)
--- NOTE | 2016-08-17 09:58 | P.DS ---
Providers Date of admission: 08/12/16 05:53 Attending physician: Alex Beck Consults: 08/12/16 12:04 Consult Physician Routine Consulting Provider: Nino Torres Consult Reason/Comments: 27 run of V-tach Do you want consulting provider notified?: Yes 08/14/16 12:15 Consult Physician Routine Consulting Provider: Chad Mclean Consult Reason/Comments: LUCI Do you want consulting provider notified?: Yes Primary care physician: Alex Kiran [facility] Course: 86 years old male who presented to the hospital with worsening shortness of breath, patient was started on COPD exacerbation pathway and pneumonia treatment, patient had slow improvement course requiring multiple consult and to be involved in his management suffered from acute on chronic kidney disease during this hospital stay and improved slowly and gradually when he felt to be a good candidate for rehab facility due to his multiple comorbidities, age, debility and lack of resources at home. Patient was diagnosed with staph aureus in his sputum and I discharge the patient's on Zyvox 600 twice daily for total of 5 days and continued Levaquin for total of 8 days as patient was receiving kidney adjusted dose. Patient was discharged in stable condition. Discharge process 35 minutes Patient Condition at Discharge: Stable Plan - Discharge Summary New Discharge Prescriptions: HYDROcodone/APAP 10-325MG [[place] 10-325] 1 tab PO TID PRN #30 tab PRN Reason: Pain Levofloxacin [Levaquin] 750 mg PO Q48H #3 tab Linezolid [Zyvox] 600 mg PO Q12H 5 Days fentaNYL 25MCG/HR PATCH [Duragesic 25MCG/HR] 25 mcg TRANSDERM Q72H PRN #5 patch PRN Reason: Pain predniSONE 40 mg PO DAILY 6 Days Discharge Medication List Omeprazole [PriLOSEC] 20 mg PO DAILY 05/01/14 [History] Tamsulosin HCl [Flomax] 0.4 mg PO HS 05/01/14 [History] Aspirin 81 mg PO DAILY 08/12/16 [History] Citalopram Hydrobromide 40 mg PO HS 08/12/16 [History] Metoprolol Tartrate [Lopressor] 12.5 mg PO BID 08/12/16 [History] guaiFENesin SYRUP 100MG/5ML [Robitussin] 200 mg PO Q6H PRN 08/12/16 [History] rOPINIRole HCL 0.5 mg PO HS 08/12/16 [History] Budesonide [Pulmicort] 0.5 mg INHALATION RT-BID nebu 08/17/16 [Rx] HYDROcodone/APAP 10-325MG [[place] 10-325] 1 tab PO TID PRN #30 tab 08/17/16 [Rx] Ipratropium-Albuterol Nebulize [Duoneb 0.5 mg-3 mg/3 ml Soln] 3 ml INHALATION RT -Q2H PRN #0 ampul.neb 08/17/16 [Rx] Ipratropium-Albuterol Nebulize [Duoneb 0.5 mg-3 mg/3 ml Soln] 3 ml INHALATION RT -QID ampul.neb 08/17/16 [Rx] Isosorbide Mononitrate ER [Imdur] 30 mg PO DAILY tab.er.24h 08/17/16 [Rx] Levofloxacin [Levaquin] 750 mg PO Q48H #3 tab 08/17/16 [Rx] Linezolid [Zyvox] 600 mg PO Q12H 5 Days 08/17/16 [Rx] fentaNYL 25MCG/HR PATCH [Duragesic 25MCG/HR] 25 mcg TRANSDERM Q72H PRN #5 patch 08/17/16 [Rx] predniSONE 40 mg PO DAILY 6 Days 08/17/16 [Rx] Follow up Appointment(s)/Referral(s): Alex Beck MD [Primary Care Provider] - 1-2 days Discharge Disposition: TRANSFER TO SNF/ECF
[2016-08-17 13:02] LABS: Mis test requested (Non-blood) Urine Total Protein
[2016-08-17 14:24] VITALS: BMI 21.6
[2016-08-17 15:58] VITALS: BP 115/55; PULSE 77; TEMP 97.9
--- NOTE | 2016-08-18 12:28 | DS ---
DATE OF ADMISSION: 08/12/2016 DATE OF DISCHARGE: 08/17/2016 ADMITTING DIAGNOSIS(ES): 1. Pneumonitis. 2. Fever. 3. Congestive heart failure with exacerbation. 4. Debility and weakness. DISCHARGE DIAGNOSIS(ES): 1. Pneumonitis. 2. Fever. 3. Congestive heart failure with exacerbation. 4. Debility and weakness. CONSULTANTS: Cardiology and pulmonology. HISTORY OF PRESENT ILLNESS AND HOSPITAL COURSE: This is an 86 -year-old who presented to the hospital with worsening short of breath. the patient was diagnosed with pneumonitis and bronchitis and congestive heart failure exacerbation. The patient's medical management was optimized and felt improvement and was at this baseline. Sputum culture revealed Staph and the patient was treated with Levaquin with evidence of improvement. ( ) felt that he needed Zyvox on discharge and I ( ) Zyvox 600 mg for five days. Closely follow with primary care physician at half-way facility and continued Levaquin for six more days ( ) dose based on kidney function. The patient was back at baseline, felt stable from medical standpoint and transferred to the half-way per physical therapy recommendations in stable condition. Total time spent in discharge process 35 minutes.
== END 2016-08-17 18:25 | DRG 190 ==
LOC: EC 03:20 → 5MS5E 05:53
PROVIDERS: ADMIT Internal Medicine Geriatric Medicine; ATTEND Internal Medicine Geriatric Medicine
DX: J44.0 Chronic obstructive pulmonary disease with (acute) lower respiratory infection (principal); J18.9 Pneumonia, unspecified organism; J96.01 Acute respiratory failure with hypoxia; I47.2 Ventricular tachycardia; N17.9 Acute kidney failure, unspecified; I50.23 Acute on chronic systolic (congestive) heart failure; K86.3 Pseudocyst of pancreas; N18.3 Chronic kidney disease, stage 3 (moderate); J45.901 Unspecified asthma with (acute) exacerbation; I13.0 Hypertensive heart and chronic kidney disease with heart failure and stage 1 through stage 4 chronic kidney disease, or unspecified chronic kidney disease; F33.9 Major depressive disorder, recurrent, unspecified; J84.10 Pulmonary fibrosis, unspecified; J44.1 Chronic obstructive pulmonary disease with (acute) exacerbation; K21.9 Gastro-esophageal reflux disease without esophagitis; I48.0 Paroxysmal atrial fibrillation; B95.62 Methicillin resistant Staphylococcus aureus infection as the cause of diseases classified elsewhere; E86.9 Volume depletion, unspecified; I25.10 Atherosclerotic heart disease of native coronary artery without angina pectoris; E78.5 Hyperlipidemia, unspecified; D64.9 Anemia, unspecified; E83.42 Hypomagnesemia; G89.4 Chronic pain syndrome; H91.93 Unspecified hearing loss, bilateral; G25.81 Restless legs syndrome; F41.9 Anxiety disorder, unspecified; M54.9 Dorsalgia, unspecified; R29.6 Repeated falls; R63.4 Abnormal weight loss; N40.0 Benign prostatic hyperplasia without lower urinary tract symptoms; R91.8 Other nonspecific abnormal finding of lung field; R53.1 Weakness; R26.9 Unspecified abnormalities of gait and mobility; Z79.891 Long term (current) use of opiate analgesic; Z79.899 Other long term (current) drug therapy; Z86.14 Personal history of Methicillin resistant Staphylococcus aureus infection; Z87.891 Personal history of nicotine dependence; Z81.1 Family history of alcohol abuse and dependence; Z79.82 Long term (current) use of aspirin; Z90.49 Acquired absence of other specified parts of digestive tract; Z91.81 History of falling; Z87.828 Personal history of other (healed) physical injury and trauma; Z86.010 Personal history of colon polyps; Z87.11 Personal history of peptic ulcer disease; Z87.19 Personal history of other diseases of the digestive system; Z86.19 Personal history of other infectious and parasitic diseases; Z87.09 Personal history of other diseases of the respiratory system; Z87.440 Personal history of urinary (tract) infections; Z96.651 Presence of right artificial knee joint; Z83.79 Family history of other diseases of the digestive system
CPT/HCPCS: 36415; 71010; 71020; 76770; 78582; 80048; 80053; 81003; 82550; 82553; 82570; 83735; 83880; 84156; 84300; 84484; 85025; 85027; 85379; 85610; 85730; 87040; 87070; 87077; 87086; 87186; 87205; 93005; 93306; 94640; 96361; 96365; 96375; 99285

== ENCOUNTER → 2016-12-07 | Outpatient (CLI) | payer MEDICARE ==
--- NOTE | 2016-12-07 11:47 | XR ---
EXAMINATION TYPE: XR chest 2V DATE OF EXAM: 12/07/2016 COMPARISON: 08/13/2016 INDICATION: Cough TECHNIQUE: Frontal and lateral views of the chest are obtained. FINDINGS: The heart size is normal. The pulmonary vasculature is normal. The lungs are clear. IMPRESSION: 1. No acute pulmonary process.
== END ==
LOC: RADXRMAIN 11:11
PROVIDERS: ATTEND Internal Medicine Geriatric Medicine
DX: R05 Cough (principal)
CPT/HCPCS: 71020